=== PATIENT | female | born 1930 | race Caucasian/White ===

== ENCOUNTER 2016-10-27 21:56 | Inpatient (IN) | payer MEDICARE ==
[~2016-10-27] VITALS: Ht 152.4 cm; Wt 71.2 kg
[~2016-10-27 21:56] MED LIST: ASPI-482 PO; ATEN25TA PO; CLOP75TA27 PO; CYAN10005 PO; FISH12002 PO; GLIP5TAB22 PO; HYDR25TA9 PO; METF500T9 PO; NITR0.4T SL; OMEP20TA PO; PRAV80TA PO; VENL75CA PO
[2016-10-27 22:19] LABS: BASO % 0 % (0-3); EOS % 2 % (0-3); HEMATOCRIT 34.6 % (36.0-47.0); HEMOGLOBIN 11.1 g/dL (12.0-15.5); LYMPH # 5.4 x10^3/uL (1.0-4.8); LYMPH % 38 % (24-48); MEAN CORPUSCULAR HEMOGLOBIN 30 pg (25-35); MEAN CORPUSCULAR HGB CONC 32 g/dL (31-37); MEAN CORPUSCULAR VOLUME 92 fL (79-100); MONO % 9 % (0-9); NEUT % 51 % (31-73); PLATELET COUNT 433 x10^3/uL (140-400); RED BLOOD COUNT 3.74 x10^6/uL (3.50-5.40); RED CELL DISTRIBUTION WIDTH 13.8 % (11.5-14.5); WHITE BLOOD COUNT 14.1 x10^3/uL (4.0-11.0)
[2016-10-27 22:29] LABS: INR 1.2 (0.8-1.1); PROTHROMBIN TIME PATIENT 14.8 SEC (11.7-14.0)
[2016-10-27 22:32] LABS: CALCIUM 9.9 mg/dL (8.5-10.1); CREATININE 2.2 mg/dL (0.6-1.0); GFR 21.1; POTASSIUM 3.4 mmol/L (3.5-5.1)
[2016-10-27 22:38] LABS: ALBUMIN 3.2 g/dL (3.4-5.0); ALBUMIN/GLOBULIN RATIO 0.6 (1.0-1.7); TOTAL BILIRUBIN 0.2 mg/dL (0.2-1.0); TOTAL PROTEIN 8.2 g/dL (6.4-8.2)
[2016-10-27] MEDS ORDERED: actos PO (22:46)
--- NOTE | 2016-10-27 22:54 | PHYS DOC ---
Past Medical History Past Medical History: Depression, Diabetes-Type II, High Cholesterol, Hypertension, TIA Additional Past Medical Histor: kidney problems Past Surgical History: Cholecystectomy, Hysterectomy, Splenectomy Additional Past Surgical Histo: cardiac stent Alcohol Use: None Drug Use: None Adult General Chief Complaint Chief Complaint: NEURO SYMPTOMS/DEFICITS [facility] Patient is a 86 year old female who presents with family for evaluation of symptoms starting prior to 6 PM tonight. Her symptoms included right-sided numbness and difficulty swallowing, that resolved and then started having left- sided numbness and weakness. States that her left leg feels worse than her left arm. She denies vision changes, dizziness, chest pain, dyspnea, back pain, nausea or vomiting, fever or chills, neck pain or manipulation, dysuria, diarrhea. She takes Plavix and an 81 mg aspirin today, as well as her other medications. Review of Systems Review of Systems Constitutional: Denies fever or chills [] Eyes: Denies change in visual acuity, redness, or eye pain [] HENT: Denies nasal congestion or sore throat [] Respiratory: Denies cough or shortness of breath [] Cardiovascular: No additional information not addressed in HPI [] GI: Denies abdominal pain, nausea, vomiting, bloody stools or diarrhea [] : Denies dysuria or hematuria [] Musculoskeletal: Denies back pain or joint pain [] Integument: Denies rash or skin lesions [] Neurologic: Denies headache [] Endocrine: Denies polyuria or polydipsia [] Allergies Allergies Allergies Coded Allergies Type Severity Reaction Last Updated Verified Sulfa (Sulfonamide Antibiotics) Allergy Intermediate 12/17/14 No cephalexin Allergy Intermediate 12/17/14 No fluconazole Allergy Intermediate 12/17/14 No iodine Allergy Intermediate 12/17/14 Yes nystatin Allergy Intermediate 12/17/14 No penicillin Allergy Intermediate 12/17/14 No Physical Exam Physical Exam Constitutional: Well developed, well nourished, no acute distress, non-toxic appearance. [] HENT: Normocephalic, atraumatic, bilateral external ears normal, oropharynx moist, no oral exudates, nose normal. [] Eyes: PERRLA, EOMI, conjunctiva normal, no discharge. [] Neck: Normal range of motion, supple. [] Cardiovascular:Heart rate regular rhythm [] Lungs & Thorax: Bilateral breath sounds clear to auscultation [] Abdomen: Bowel sounds normal, soft, no tenderness. [] Skin: Warm, dry, no erythema, no rash. [] Back: Normal range of motion. [] Extremities: No tenderness, ROM intact, no edema. [] Neurologic: Alert and oriented X 3, has extremity drift and left upper and left lower extremities, has abnormal sensation to light touch along left leg compared to right leg, cranial nerves II through XII intact. [] Psychologic: Affect normal, judgement normal, mood normal. [] Current Patient Data Vital Signs Vital Signs Date Time Temp Pulse Resp B/P (MAP) Pulse Ox O2 Delivery O2 Flow Rate FiO2 10/27/16 22:11 97.7 67 17 144/67 (92) 97 Room Air 97.7 Lab Values Laboratory Tests Test 10/27/16 22:09 10/27/16 22:10 Glucose (Fingerstick) 94 mg/dL (70-99) White Blood Count 14.1 x10^3/uL (4.0-11.0) H Red Blood Count 3.74 x10^6/uL (3.50-5.40) Hemoglobin 11.1 g/dL (12.0-15.5) L Hematocrit 34.6 % (36.0-47.0) L Mean Corpuscular Volume 92 fL (79-100) Mean Corpuscular Hemoglobin 30 pg (25-35) Mean Corpuscular Hemoglobin Concent 32 g/dL (31-37) Red Cell Distribution Width 13.8 % (11.5-14.5) Platelet Count 433 x10^3/uL (140-400) H Neutrophils (%) (Auto) 51 % (31-73) Lymphocytes (%) (Auto) 38 % (24-48) Monocytes (%) (Auto) 9 % (0-9) Eosinophils (%) (Auto) 2 % (0-3) Basophils (%) (Auto) 0 % (0-3) Neutrophils # (Auto) 7.2 x10^3uL (1.8-7.7) Lymphocytes # (Auto) 5.4 x10^3/uL (1.0-4.8) H Monocytes # (Auto) 1.3 x10^3/uL (0.0-1.1) H Eosinophils # (Auto) 0.2 x10^3/uL (0.0-0.7) Basophils # (Auto) 0.0 x10^3/uL (0.0-0.2) Prothrombin Time 14.8 SEC (11.7-14.0) H Prothrombin Time INR 1.2 (0.8-1.1) H PTT 32 SEC (24-38) Sodium Level 139 mmol/L (136-145) Potassium Level 3.4 mmol/L (3.5-5.1) L Chloride Level 100 mmol/L (98-107) Carbon Dioxide Level 28 mmol/L (21-32) Anion Gap 11 (6-14) Blood Urea Nitrogen 70 mg/dL (7-20) H Creatinine 2.2 mg/dL (0.6-1.0) H Estimated GFR (Cockcroft-Gault) 21.1 BUN/Creatinine Ratio 32 (6-20) H Glucose Level 100 mg/dL (70-99) H Calcium Level 9.9 mg/dL (8.5-10.1) Total Bilirubin 0.2 mg/dL (0.2-1.0) Aspartate Amino Transferase (AST) 15 U/L (15-37) Alanine Aminotransferase (ALT) 17 U/L (14-59) Alkaline Phosphatase 62 U/L (46-116) Troponin I Quantitative < 0.017 ng/mL (0.000-0.055) Total Protein 8.2 g/dL (6.4-8.2) Albumin 3.2 g/dL (3.4-5.0) L Albumin/Globulin Ratio 0.6 (1.0-1.7) L Laboratory Tests 10/27/16 22:10 Laboratory Tests 10/27/16 22:10 EKG EKG EKG as interpreted by me as sinus rhythm with interventricular block, rate 68, no ST-T changes, AK 178, QTc 472, no ectopy Radiology/Procedures Radiology/Procedures Head CT without contrast IMPRESSION: 1. No acute intracranial hemorrhage. 2. Scattered regions of low attenuation within the white matter. Non-specific in nature but frequently secondary to small vessel ischemic disease. If there is clinical concern for acute etiology MRI could better evaluate to ensure that none of these foci are acute. 3. Prominence of ventricles and sulci which is frequently secondary to age related volume loss. Electronically signed by: Bobby Thompson MD (10/27/2016 11:01 PM) Course & Med Decision Making Course & Med Decision Making Pertinent Labs and Imaging studies reviewed. (See chart for details) Workup is unremarkable. NIH 4 (left sensory change, LUE drift, LLE drift). Symptoms are concerning for ischemic stroke. Due to the onset of her symptoms, she is not at candidate for thrombolysis. Discussed case with Dr. Kauffman, who will admit. Neurology consult placed. Dragon Disclaimer Dragon Disclaimer This electronic medical record was generated, in whole or in part, using a voice recognition dictation system. Departure Departure Impression: Primary Impression: Left-sided weakness Additional Impression: Left sided numbness Disposition: ADMITTED INPATIENT Condition: STABLE Referrals: RUTH KAUFFMAN MD (PCP) Problem Qualifiers Cristiano HERNANDEZ MD October 27, 2016 22:54
--- NOTE | 2016-10-27 23:04 | RAD ---
INDICATION: rt facial numbness and left leg weakness, onset 1800 tonight, no priors COMPARISON: None. TECHNIQUE: Axial CT images obtained through the head without intravenous contrast. One or more of the following individualized dose reduction techniques were utilized for this examination: 1. Automated exposure control; 2. Adjustment of the mA and/or kV according to patient size; 3. Use of iterative reconstruction technique. FINDINGS: No intracranial hemorrhage. No midline shift. Basal cisterns patents. Ventricles and sulci are globally prominent. No acute osseous abnormality. Orbits and paranasal sinuses unremarkable. Scattered foci of low attenuation within the white matter. IMPRESSION: 1. No acute intracranial hemorrhage. 2. Scattered regions of low attenuation within the white matter. Non-specific in nature but frequently secondary to small vessel ischemic disease. If there is clinical concern for acute etiology MRI could better evaluate to ensure that none of these foci are acute. 3. Prominence of ventricles and sulci which is frequently secondary to age related volume loss. Electronically signed by: Bobby Thompson MD (10/27/2016 11:01 PM)
[2016-10-27] MEDS ORDERED: ASPIRIN 325 MG TABLET PO ONE (23:15)
[2016-10-27] MEDS ORDERED: ONDANSETRON PF 4 MG/2 ML VIAL. IV PRN (23:30)
[2016-10-27] MEDS ORDERED: ACETAMINOPHEN 325 MG TABLET. PO PRN (23:30)
[2016-10-28] MEDS: IV NORMAL SALINE 1000ML BAG 1,000 ML IV SCH ×4 (00:29→20:15)
[2016-10-28] MEDS ORDERED: NITROGLYCERIN SUBLINGUAL 0.4 MG BOTTLE OF 25. SL PRN ×2 (01:45→11:15)
[2016-10-28 03:00] VITALS: BP 112/32
--- NOTE | 2016-10-28 07:06 | EKG ---
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
[2016-10-28 07:30] VITALS: BP 115/42
[2016-10-28] MEDS: PANTOPRAZOLE 40 MG TABLET.DR. PO SCH (08:25)
[2016-10-28] MEDS: ASPIRIN ENTERIC COATED 81 MG TABLET.DR. PO SCH (08:25)
[2016-10-28] MEDS: CLOPIDOGREL BISULFATE 75 MG TABLET PO SCH (08:26)
[2016-10-28] MEDS: CYANOCOBALAMIN (VITAMIN B-12) 1,000 MCG TABLET. PO SCH (08:26)
[2016-10-28] MEDS: VENLAFAXINE XR 37.5 MG CAP.ER.24H. PO SCH (08:26)
[2016-10-28] MEDS: OMEGA-3 FATTY ACIDS/FISH OIL 1,000 MG CAPSULE. PO SCH (08:28)
[2016-10-28] MEDS ORDERED: ATENOLOL 25 MG TABLET. PO SCH (09:00)
[2016-10-28] MEDS ORDERED: hydroCHLOROthiazide 25 MG TABLET PO SCH (09:00)
--- NOTE | 2016-10-28 11:07 | CARD ---
APPROVED REPORT EXAM: Two-dimensional and M-mode echocardiogram with Doppler, color Doppler with contrast. Other Information Quality : Average Rhythm : NSR INDICATION CVA/TIA Echo Enhancing Agent Indication: Rule Out Septal Defect Agent/Amount Used: Agitated Saline 8mL 2D DIMENSIONS RVDd2.4 (2.9-3.5cm)Left Atrium(2D)3.7 (1.6-4.0cm) IVSd0.9 (0.7-1.1cm)Aortic Root(2D)2.3 (2.0-3.7cm) LVDd4.3 (3.9-5.9cm)LVOT Diameter2.0 (1.8-2.4cm) PWd0.9 (0.7-1.1cm)LVDs3.2 (2.5-4.0cm) FS (%) 26.7 %SV44.6 ml LVEF(%)52.4 (>50%) Aortic Valve AoV Peak Jose.167.9cm/sAoV VTI38.4cm AO Peak GR.11.3mmHgLVOT Peak Jose.100.4cm/s LVOT VTI 25.91cmAO Mean GR.6mmHg SHANE (VTI)2.12cm2 Mitral Valve MV E Nlzawjnh43.9cm/sMV DECEL EDAB938xv MV A Ftberycf213.7cm/sMV AWA89ra E/A Ratio0.8MV A Pzbaltyp110yx MVA (PHT)3.05cm2 TDI E/Lateral E'14.1E/Medial E'15.5 Pulmonary Valve PV Peak Hthtbyyw59.1cm/sPV Peak Grad.4mmHg RVOT VTI13.4cm Tricuspid Valve TR P. Jijusamd058cw/sRAP ILZTTIBA5cqCn TR Peak Gr.79bxWnZYVK93fjJt LEFT VENTRICLE The left ventricle is normal size. There is normal left ventricular wall thickness. Left ventricle sy stolic function is normal. The Ejection Fraction is 50-55%. There is normal LV segmental wall motion. The left ventricular diastolic function and filling is normal for age. There is no ventricular septa l defect visualized. RIGHT VENTRICLE The right ventricle is normal size. The right ventricular systolic function is normal. ATRIA The left atrium size is normal. The right atrium size is normal. Injection of bubbles documented no i nteratrial shunt. AORTIC VALVE The aortic valve is mildly calcified. The aortic valve is trileaflet. Doppler and Color Flow revealed no significant aortic regurgitation. There is no significant aortic valvular stenosis. MITRAL VALVE Mitral annular calcification is mild. The mitral valve leaflets are calcified. There is no mitral dwight ve stenosis. Doppler and Color Flow revealed trace mitral regurgitation. TRICUSPID VALVE The tricuspid valve is normal in structure and function. Doppler and Color Flow revealed trace to mil d tricuspid regurgitation. The PA pressure was estimated at 39 mmHg. There is no tricuspid valve sten osis. PULMONIC VALVE The pulmonic valve is not well visualized. Doppler and Color Flow revealed no pulmonic valvular regur gitation. There is no pulmonic valvular stenosis. GREAT VESSELS The aortic root is normal in size. Normal pulmonary venous flow (Doppler). The IVC is normal in size and collapses >50% with inspiration. PERICARDIAL EFFUSION There is no evidence of significant pericardial effusion. Critical Notification Critical Value: No <Conclusion> Left ventricle systolic function is normal. The Ejection Fraction is 50-55%. There is normal LV segmental wall motion. Injection of bubbles documented no interatrial shunt.
[2016-10-28] MEDS ORDERED: MAGNESIUM HYDROXIDE 2,400 MG/30 ML ORAL.SUSP. PO PRN (11:15)
[2016-10-28] MEDS ORDERED: ACETAMINOPHEN 325 MG TABLET. PO PRN (11:15)
--- NOTE | 2016-10-28 11:24 | PDOC ---
Provider Note Provider Note history and physical dictated # [id number] RUTH CRUZ MD Oct 28, 2016 11:24
[2016-10-28] MEDS ORDERED: POTASSIUM CHLORIDE 20 MEQ TABLET.ER. PO ONE (11:30)
[2016-10-28] MEDS ORDERED: CYANOCOBALAMIN (VITAMIN B-12) 1,000 MCG TABLET. PO SCH (12:00)
[2016-10-28] MEDS ORDERED: OMEGA-3 FATTY ACIDS/FISH OIL 1,000 MG CAPSULE. PO SCH (12:00)
--- NOTE | 2016-10-28 12:18 | HP ---
ADMIT DATE: 10/28/2016 LOCATION: She is in room 650. HISTORY OF THE PRESENT ILLNESS: The patient is an 86-year-old white female with history of diabetes mellitus type 2, hypertension, hyperlipidemia, and coronary artery disease, who was admitted to [facility] through the Emergency Room on 10/27/2016 with left-sided weakness and difficulty walking. [place]ness in the right side of her face. That eventually resolved and recurred later in the day. She also had some difficulty swallowing at one point. The patient then developed some left-sided numbness involving her left leg and also had some difficulty walking. She sought the help at the [facility] Emergency Room yesterday, and the patient was hemodynamically stable. She was noted to have a left pronator drift and mild weakness in the left leg. A CAT scan of the head in the Emergency Room was negative, and she was subsequently admitted to the hospital and treated with 325 mg of aspirin and started on IV fluids. She was noted to be in acute kidney injury with a BUN 70 and a creatinine of 2.2. She denies any vomiting or diarrhea. There was a consult for speech therapist, and she said she ate breakfast well without any problems swallowing solid foods or liquids. She just completed her echocardiogram today, and I saw her before her carotid ultrasound, and she will be having an MRI of the brain subsequent to that. ALLERGIES AND INTOLERANCES: INCLUDE KEFLEX, FLUCONAZOLE, ORAL AND IV IODINE, ATROVENT, LISINOPRIL CAUSED HYPERKALEMIA, PENICILLIN, CRESTOR CAUSED MYALGIAS, SULFA, AND SILDENAFIL. MEDICATIONS: Include amlodipine 5 mg every day, atenolol 12.5 mg b.i.d., aspirin 81 mg every day, Effexor XR 75 mg every day, fish oil 1 g every day, glipizide 5 mg b.i.d., hydrochlorothiazide 25 mg every day, MiraLax 17 grams daily, multiple vitamin once a day, nitroglycerin 0.4 mg sublingual p.r.n., Actos 30 mg every day, Plavix 75 mg every day, pravastatin 40 mg every day, Senokot-S two tablets at bedtime, vitamin B12 1000 mcg daily, and vitamin D 1000 units every day. PAST MEDICAL HISTORY: Significant for diabetes mellitus type 2, hypertension, hyperlipidemia, coronary artery disease, and overactive bladder. PAST SURGICAL HISTORY: She had a PTCA and stent to right coronary artery in 2012. She had a tonsillectomy, splenectomy, and benign colon polypectomy in 2008. She had a cholecystectomy, cataract extraction, appendectomy, had a cardiac catheterization in 2004, and had a partial thyroidectomy. SOCIAL HISTORY: She is retired, does not drink alcohol, nor does she smoke cigarettes. FAMILY HISTORY: Noncontributory. REVIEW OF SYSTEMS: GENERAL: She denies any fever, chills, or sweats in the last 3 days. CARDIOVASCULAR: No chest pain. PULMONARY: No cough or shortness breath. GASTROINTESTINAL: No constipation. She has some difficulty swallowing apparently yesterday, but not this morning. SKIN: No rashes. NEUROLOGIC: She has a left-sided weakness, had some numbness in the right side of her cheek yesterday, and difficulty swallowing yesterday. ENDOCRINE: She has diabetes mellitus. The rest of systems reviewed are negative except as stated in history of present illness. PHYSICAL EXAMINATION: VITAL SIGNS: Temperature is 97.6 degrees, apical pulse is regular at 52, respiratory rate 18, blood pressure 115/42, and oxygen saturation 96% on room air. HEENT: Eyes: Gaze is conjugate. Extraocular muscles are intact. Mouth: Tongue is midline. There is no facial weakness. NECK: No cervical lymphadenopathy. HEART: Reveals an S1, S2. There is no S3 or murmur. LUNGS: Clear. ABDOMEN: Soft, nontender in the sitting position. EXTREMITIES: Lower extremities without edema. SKIN: No rashes. NEUROLOGIC: Again, there is no facial weakness. She has got a left pronator drift noted on the left side, some mild weakness in the left hand mat gauger relative to the right. She has got good biceps strength bilaterally. Right lower extremity is able to dorsiflex and plantar flex right foot, bend and extend her right knee, and raise her right thigh off the wheelchair seat. Left lower extremity is weaker. She has got about 2 to 3 out of 5 dorsiflexion of the left foot, about 4 to 5 plantarflexion of the left foot. She can flex and extend her left knee but is weaker. She has more difficult time raising her left thigh off the wheelchair seat relative to the right leg. LABORATORY DATA: Her white count was 14.1, hemoglobin 11.1 with a platelet count 433,000, 51 polys, and 38 lymphocytes. INR of 1.2, serum sodium is 139, potassium 3.4, chloride 100, total CO2 was 28, BUN 70, creatinine 2.2, and blood sugar was 100. She had a blood sugar of 61 at 734 this morning and repeated was 136 at 9:20 a.m. Liver function tests were normal. Troponin level is less than 0.017. Albumin was 3.2. She had a CAT scan of the head which showed no acute abnormality. She had an EKG which showed normal sinus rhythm, left axis deviation, left anterior hemiblock, and right bundle adelina block. ASSESSMENT: 1. Acute cerebrovascular accident, left-sided hemiparesis. 2. Acute kidney injury, possibly from dehydration and volume depletion. 3. Diabetes mellitus type 2. 4. Hypertension. 5. Hyperlipidemia. 6. Coronary artery disease. PLAN: At this time is to start her on IV normal saline at 75 mL an hour. She did receive IV fluids in the Emergency Room. We will discontinue the hydrochlorothiazide. Check a renal ultrasound and urinalysis and recheck her CBC and BMP tomorrow. We will also get an MRI of the brain, echocardiogram, and carotid ultrasound. We will consult Dr. Morataya. [facility] [place] prophylaxis. Decrease the glipizide to 5 mg every day, putting her on diabetic diet, checking her blood sugars before meals t.i.d. and bedtime. Continue the Actos for diabetes mellitus. Continue the aspirin and Plavix for now for cerebrovascular accident. Pravastatin is not on formulary, so we will try low-dose atorvastatin. Hopefully, she will tolerate that without myalgias. Check a hemoglobin A1c and lipid profile tomorrow, and we will decrease the atenolol and hold if the heart rate is less than 60. In fact, we will discontinue the atenolol and put her on low-dose metoprolol succinate once a day at 12.5 mg if the heart rate is 60 or higher. She will receive physical therapy, occupational therapy, and speech therapy also. Speech Therapy will evaluate her as well. RUTH CRUZ MD DR: RACHELLE/tobias JOB#: [id number] / [id number]
--- NOTE | 2016-10-28 13:02 | RAD ---
EXAM: Brain MRI without contrast. HISTORY: Right facial numbness and left leg weakness. TECHNIQUE: Multiplanar, multisequence magnetic resonance imaging of the brain was performed without contrast. COMPARISON: CT dated 10/27/2016. FINDINGS: There is no restricted diffusion to suggest acute or subacute infarction. There is a faint focus of susceptibility effect within the right cerebellum, possibly due to chronic microhemorrhage. There are scattered focal areas of signal change throughout the cerebral white matter, a nonspecific finding likely due to chronic small vessel disease. There is mild age-appropriate cerebral volume loss. There are findings consistent with lens surgery. The paranasal sinuses and mastoid air cells are unremarkable. There is a tiny focus of encephalomalacia within the left cerebellum, likely due to chronic infarction. There may also be chronic lacunar infarcts within the bilateral thalami. There is a hypoplastic distal left vertebral artery. There are normal flow voids within the cerebral vessels. There is slight hyperostosis frontalis interna. IMPRESSION: 1. No acute intracranial finding. 2. Scattered focal areas of signal change within the cerebral white matter, a nonspecific finding likely due to chronic small vessel disease. 3. Suspected small chronic infarct within the left cerebellum and possible chronic lacunar infarcts within the lateral thalami. 4. Age-appropriate cerebral volume loss. Electronically signed by: Qian Stroud MD (10/28/2016 12:59 PM)
[2016-10-28] MEDS: glipiZIDE 5 MG TABLET PO SCH (14:04)
[2016-10-28] MEDS: CHOLECALCIFEROL (VITAMIN D3) 1,000 UNIT TABLET PO SCH (14:08)
[2016-10-28] MEDS: PIOGLITAZONE 15 MG TABLET. PO SCH (14:08)
[2016-10-28] MEDS: MULTIVITAMIN with MINERAL TABLET. PO SCH (14:08)
[2016-10-28] MEDS: METOPROLOL SUCC 24HR ER 25 MG TAB.ER.24H. PO SCH (14:08)
[2016-10-28 14:33] VITALS: BP 141/50
--- NOTE | 2016-10-28 14:39 | RAD ---
Indication acute renal insufficiency. Grayscale imaging targeted to the kidneys was performed. No recent similar imaging is available. The right kidney measures 9.4 x 4.7 x 4.5 cm. No hydronephrosis or mass is seen. The urinary bladder is largely collapsed and poorly evaluated with ultrasound. The left kidney measures 10 x 4.2 x 4 cm and appears normal showing no evidence of hydronephrosis or mass. IMPRESSION: Apart from slightly small kidneys the morphologic appearance of the kidneys is normal.
--- NOTE | 2016-10-28 14:48 | RAD ---
Indication CVA. Grayscale color Doppler and spectral imaging targeted to the carotid bifurcations was performed. On the right there is no significant plaquing. The color Doppler images do not suggest significant turbulence. The common carotid waveform and velocities are normal. The external carotid has a normal appearance. The internal carotid waveform and velocities are normal. The vertebral is patent and demonstrates normal directional flow. On the left there is some slight plaquing at the bifurcation. The common carotid waveform and velocities are normal. The color Doppler images do not suggest significant turbulence. The external carotid has a normal appearance. The internal carotid waveform and velocities are within normal limits. The vertebral is patent and demonstrates normal directional flow. IMPRESSION: No evidence of hemodynamically significant stenosis at either carotid bifurcation. Stenosis 0-50%. Note: Stenosis calculations for CT, MR and conventional angiography are based upon determination of the distal ICA diameter in accordance with the NASCET methodology. Stenosis calculations for doppler studies are derived from validated velocity criteria which are known to correlate with NASCET methodology of determining stenosis.
--- NOTE | 2016-10-28 14:58 | PDOC2 ---
NEUROLOGY CONSULT Date of Admission Date of Admission DATE: 10/28/16 TIME: 14:52 Reason for Consult Reason for Consult: Stroke symptoms Referring Physician Referring Physician: Dr. Kauffman Source Source: Caregiver, Chart review, Patient History of Present Illness History of Present Illness The patient is an 86-year-old right-handed female who was with her daughter at the [facility] yesterday afternoon when about 6 PM she noticed onset of right facial numbness. Symptoms improve, but then she started noticing left-sided weakness and numbness 2 hours later. She presented at 10 PM but the emergency room physician determine that she was outside the TPA window. I was not called about this issue. Denies any history of stroke, seizure, or head injury. She has been told that she has had mini strokes in the past, though. Past Medical History Cardiovascular: CAD, HTN GI: GERD Psych: Depression Endocrine: Diabetes Past Surgical History Past Surgical History: Cholecystectomy, Tonsillectomy, Other (coronary stent, lumpectomy, partial thyroidectomy) Family History Family History: CAD Social History Social History , nonsmoker, nondrinker Current Medications Current Medications Current Medications Aspirin (Celi Aspirin) 325 mg 1X ONCE PO Last administered on 10/28/16 00:29 ; Start 10/27/16 at 23:15; Stop 10/27/16 at 23:16; Status DC Ondansetron HCl (Zofran) 4 mg PRN Q8HRS PRN IV NAUSEA/VOMITING; Start 10/27/16 at 23:30; Stop 10/28/16 at 23:29 Sodium Chloride 1,000 ml @ 75 mls/hr [id number] IV Last administered on 10/28/16 14:12; Start 10/27/16 at 23:30; Stop 10/28/16 at 23:29 Acetaminophen (Tylenol) 650 mg PRN Q4HRS PRN PO FEVER; Start 10/27/16 at 23:30 ; Stop 10/28/16 at 23:29 Aspirin (Ecotrin) 81 mg DAILY PO Last administered on 10/28/16 08:25; Start 10/28/16 at 09:00 Atenolol (Tenormin) 12.5 mg BID PO ; Start 10/28/16 at 09:00; Stop 10/28/16 at 11: 26; Status DC Clopidogrel Bisulfate (Plavix) 75 mg DAILY PO Last administered on 10/28/16 08: 26; Start 10/28/16 at 09:00 Cyanocobalamin (Vitamin B-12) 500 mcg DAILY PO Last administered on 10/28/16 08 :26; Start 10/28/16 at 09:00 Hydrochlorothiazide (Hydrodiuril) 25 mg DAILY PO Last administered on 10/28/16 08:26; Start 10/28/16 at 09:00; Stop 10/28/16 at 10:27; Status DC Nitroglycerin (Nitrostat) 0.4 mg PRN Q5MIN PRN SL CHEST PAIN; Start 10/28/16 at 01:45 Fish Oil (Fish Oil) 1,000 mg DAILY PO Last administered on 10/28/16 08:28; Start 10/28/16 at 09:00 Pantoprazole Sodium (Protonix) 40 mg DAILYAC PO Last administered on 10/28/16 08:25; Start 10/28/16 at 07:30 Atorvastatin Calcium (Lipitor) 20 mg QHS PO ; Start 10/28/16 at 21:00; Stop at 21:00; Status DC Venlafaxine HCl (Effexor Xr) 75 mg DAILY PO Last administered on 10/28/16 08:26 ; Start 10/28/16 at 09:00 Glipizide (Glucotrol) 5 mg DAILY PO Last administered on 10/28/16 14:04; Start 10/28/16 at 12:00 Pioglitazone HCl (Actos) 30 mg DAILY PO Last administered on 10/28/16 14:08; Start 10/28/16 at 12:00 Atorvastatin Calcium (Lipitor) 10 mg QHS PO ; Start 10/28/16 at 21:00 Vitamin D (Vitamin D3) 1,000 unit DAILY PO Last administered on 10/28/16 14:08 ; Start 10/28/16 at 12:00 Cyanocobalamin (Vitamin B-12) 1,000 mcg DAILY PO Last administered on 10/28/16 14:03; Start 10/28/16 at 12:00 Senna/Docusate Sodium (Senna Plus) 2 tab QHS PO ; Start 10/28/16 at 21:00 Nitroglycerin (Nitrostat) 0.4 mg PRN Q5MIN PRN SL CHEST PAIN; Start 10/28/16 at 11:15 Acetaminophen (Tylenol) 650 mg Q4HRS PRN PO MILD PAIN / TEMP; Start 10/28/16 at 11:15 Multivitamins (Thera M Plus) 1 tab DAILY PO Last administered on 10/28/16 14:08 ; Start 10/28/16 at 12:00 Fish Oil (Fish Oil) 1,000 mg DAILY PO ; Start 10/28/16 at 12:00 Sodium Chloride 1,000 ml @ 75 mls/hr [id number] IV ; Start 10/28/16 at 11:15 Magnesium Hydroxide (Milk Of Magnesia) 2,400 mg PRN DAILY PRN PO CONSTIPATION; Start 10/28/16 at 11:15 Metoprolol Succinate (Toprol Xl) 12.5 mg DAILY PO Last administered on 14:08; Start 10/28/16 at 12:00 Potassium Chloride (Klor-Con) 20 meq 1X ONCE PO Last administered on 10/28/16 14:08; Start 10/28/16 at 11:30; Stop 10/28/16 at 11:43; Status DC Active Scripts Active Reported [actos] 2.5 Tab 2.5 Mg PO DAILY [place] 3-6-9 1,200 mg Softgel (Fish Oil/Borage/Flax/Om3,6,9#1) 1,200 Mg Capsule 1 ,200 Mg PO DAILY Omeprazole 20 Mg Tablet. 20 Mg PO DAILY Pravachol (Pravastatin Sodium) 80 Mg Tablet 80 Mg PO QHS Effexor Xr (Venlafaxine Hcl) 75 Mg Cap.er.24h 75 Mg PO DAILY Nitrostat (Nitroglycerin) 0.4 Mg Tab.subl 0.4 Mg SL PRN Q5MIN PRN Glipizide Er (Glipizide) 5 Mg Tab.er.24 5 Mg PO BID Plavix (Clopidogrel Bisulfate) 75 Mg Tablet 75 Mg PO DAILY Aspir 81 (Aspirin) 81 Mg Tablet.dr 81 Mg PO DAILY Atenolol 25 Mg Tablet 12.5 Mg PO BID Vitamin B-12 (Cyanocobalamin (Vitamin B-12)) 1,000 Mcg Tablet 500 Mcg PO DAILY Hydrochlorothiazide Tablet (Hydrochlorothiazide) 25 Mg Tablet 25 Mg PO DAILY Allergies Allergies: Coded Allergies: Sulfa (Sulfonamide Antibiotics) (Verified Allergy, Intermediate, 10/28/16) cephalexin (Verified Allergy, Intermediate, 10/28/16) fluconazole (Verified Allergy, Intermediate, 10/28/16) iodine (Verified Allergy, Intermediate, 12/17/14) nystatin (Verified Allergy, Intermediate, 10/28/16) penicillin (Verified Allergy, Intermediate, 10/28/16) ROS Review of System Patient denies fevers, chills, weight loss, dyspnea, angina, abdominal pain, change in bowels, or dysuria. 14 point review of systems is negative. Physical Exam Physical Examination PHYSICAL EXAMINATION: Vital signs: see above. General appearance is normal and in no acute distress. HEENT: Normocephalic and nontraumatic. Eyes, nose, ears, and throat are unremarkable. Neck is supple. No lymphadenopathy. No bruits are heard over the carotid artery. No crepitus. NEUROLOGICAL EXAMINATION: Mental Status Examination: Alert. Oriented to time, place, and person. Answers questions and follows commends. Pupils are equal round and reactive to light and accommodation. Extraocular movements are intact. Visual field exam shows no defect on the direct confrontation. No motor or sensory deficits on the facial exam. Uvula in the midline and the soft palate elevated symmetrically. No deviation of the tongue to any direction. Gross hearing is normal. Shoulder shrug normal. Muscle tone is normal. Muscle strength is 4/5 on the left, 5/5 on the right. Deep tendon reflexes are 2+ all around. Plantar reflex is with flexion response bilaterally. [id number] test performance is accurate. Alternative movements are accurate. Gait is unsteady. Sensory exam shows patchy loss on the left. No cerebellar signs are elicited. Vitals VITALS Vital Signs Date Time Temp Pulse Resp B/P (MAP) Pulse Ox O2 Delivery O2 Flow Rate FiO2 10/28/16 14:08 62 115/42 10/28/16 07:50 Room Air 10/28/16 07:30 97.6 18 96 97.6 Labs Labs Laboratory Tests Test 10/27/16 22:09 10/27/16 22:10 10/28/16 07:34 10/28/16 09:20 Glucose (Fingerstick) 94 mg/dL (70-99) 61 mg/dL (70-99) 136 mg/dL (70-99) White Blood Count 14.1 x10^3/uL (4.0-11.0) Red Blood Count 3.74 x10^6/uL (3.50-5.40) Hemoglobin 11.1 g/dL (12.0-15.5) Hematocrit 34.6 % (36.0-47.0) Mean Corpuscular Volume 92 fL (79-100) Mean Corpuscular Hemoglobin 30 pg (25-35) Mean Corpuscular Hemoglobin Concent 32 g/dL (31-37) Red Cell Distribution Width 13.8 % (11.5-14.5) Platelet Count 433 x10^3/uL (140-400) Neutrophils (%) (Auto) 51 % (31-73) Lymphocytes (%) (Auto) 38 % (24-48) Monocytes (%) (Auto) 9 % (0-9) Eosinophils (%) (Auto) 2 % (0-3) Basophils (%) (Auto) 0 % (0-3) Neutrophils # (Auto) 7.2 x10^3uL (1.8-7.7) Lymphocytes # (Auto) 5.4 x10^3/uL (1.0-4.8) Monocytes # (Auto) 1.3 x10^3/uL (0.0-1.1) Eosinophils # (Auto) 0.2 x10^3/uL (0.0-0.7) Basophils # (Auto) 0.0 x10^3/uL (0.0-0.2) Prothrombin Time 14.8 SEC (11.7-14.0) Prothromb Time International Ratio 1.2 (0.8-1.1) Activated Partial Thromboplast Time 32 SEC (24-38) Sodium Level 139 mmol/L (136-145) Potassium Level 3.4 mmol/L (3.5-5.1) Chloride Level 100 mmol/L (98-107) Carbon Dioxide Level 28 mmol/L (21-32) Anion Gap 11 (6-14) Blood Urea Nitrogen 70 mg/dL (7-20) Creatinine 2.2 mg/dL (0.6-1.0) Estimated GFR (Cockcroft-Gault) 21.1 BUN/Creatinine Ratio 32 (6-20) Glucose Level 100 mg/dL (70-99) Calcium Level 9.9 mg/dL (8.5-10.1) Total Bilirubin 0.2 mg/dL (0.2-1.0) Aspartate Amino Transf (AST/SGOT) 15 U/L (15-37) Alanine Aminotransferase (ALT/SGPT) 17 U/L (14-59) Alkaline Phosphatase 62 U/L (46-116) Troponin I Quantitative < 0.017 ng/mL (0.000-0.055) Total Protein 8.2 g/dL (6.4-8.2) Albumin 3.2 g/dL (3.4-5.0) Albumin/Globulin Ratio 0.6 (1.0-1.7) Laboratory Tests Test 10/27/16 22:09 10/27/16 22:10 10/28/16 07:34 10/28/16 09:20 Glucose (Fingerstick) 94 mg/dL (70-99) 61 mg/dL (70-99) 136 mg/dL (70-99) White Blood Count 14.1 x10^3/uL (4.0-11.0) Red Blood Count 3.74 x10^6/uL (3.50-5.40) Hemoglobin 11.1 g/dL (12.0-15.5) Hematocrit 34.6 % (36.0-47.0) Mean Corpuscular Volume 92 fL (79-100) Mean Corpuscular Hemoglobin 30 pg (25-35) Mean Corpuscular Hemoglobin Concent 32 g/dL (31-37) Red Cell Distribution Width 13.8 % (11.5-14.5) Platelet Count 433 x10^3/uL (140-400) Neutrophils (%) (Auto) 51 % (31-73) Lymphocytes (%) (Auto) 38 % (24-48) Monocytes (%) (Auto) 9 % (0-9) Eosinophils (%) (Auto) 2 % (0-3) Basophils (%) (Auto) 0 % (0-3) Neutrophils # (Auto) 7.2 x10^3uL (1.8-7.7) Lymphocytes # (Auto) 5.4 x10^3/uL (1.0-4.8) Monocytes # (Auto) 1.3 x10^3/uL (0.0-1.1) Eosinophils # (Auto) 0.2 x10^3/uL (0.0-0.7) Basophils # (Auto) 0.0 x10^3/uL (0.0-0.2) Prothrombin Time 14.8 SEC (11.7-14.0) Prothromb Time International Ratio 1.2 (0.8-1.1) Activated Partial Thromboplast Time 32 SEC (24-38) Sodium Level 139 mmol/L (136-145) Potassium Level 3.4 mmol/L (3.5-5.1) Chloride Level 100 mmol/L (98-107) Carbon Dioxide Level 28 mmol/L (21-32) Anion Gap 11 (6-14) Blood Urea Nitrogen 70 mg/dL (7-20) Creatinine 2.2 mg/dL (0.6-1.0) Estimated GFR (Cockcroft-Gault) 21.1 BUN/Creatinine Ratio 32 (6-20) Glucose Level 100 mg/dL (70-99) Calcium Level 9.9 mg/dL (8.5-10.1) Total Bilirubin 0.2 mg/dL (0.2-1.0) Aspartate Amino Transf (AST/SGOT) 15 U/L (15-37) Alanine Aminotransferase (ALT/SGPT) 17 U/L (14-59) Alkaline Phosphatase 62 U/L (46-116) Troponin I Quantitative < 0.017 ng/mL (0.000-0.055) Total Protein 8.2 g/dL (6.4-8.2) Albumin 3.2 g/dL (3.4-5.0) Albumin/Globulin Ratio 0.6 (1.0-1.7) Images Images Brain MRI: FINDINGS: There is no restricted diffusion to suggest acute or subacute infarction. There is a faint focus of susceptibility effect within the right cerebellum, possibly due to chronic microhemorrhage. There are scattered focal areas of signal change throughout the cerebral white matter, a nonspecific finding likely due to chronic small vessel disease. There is mild age-appropriate cerebral volume loss. There are findings consistent with lens surgery. The paranasal sinuses and mastoid air cells are unremarkable. There is a tiny focus of encephalomalacia within the left cerebellum, likely due to chronic infarction. There may also be chronic lacunar infarcts within the bilateral thalami. There is a hypoplastic distal left vertebral artery. There are normal flow voids within the cerebral vessels. There is slight hyperostosis frontalis interna. IMPRESSION: 1. No acute intracranial finding. 2. Scattered focal areas of signal change within the cerebral white matter, a nonspecific finding likely due to chronic small vessel disease. 3. Suspected small chronic infarct within the left cerebellum and possible chronic lacunar infarcts within the lateral thalami. 4. Age-appropriate cerebral volume loss. Carotids: On the right there is no significant plaquing. The color Doppler images do not suggest significant turbulence. The common carotid waveform and velocities are normal. The external carotid has a normal appearance. The internal carotid waveform and velocities are normal. The vertebral is patent and demonstrates normal directional flow. On the left there is some slight plaquing at the bifurcation. The common carotid waveform and velocities are normal. The color Doppler images do not suggest significant turbulence. The external carotid has a normal appearance. The internal carotid waveform and velocities are within normal limits. The vertebral is patent and demonstrates normal directional flow. IMPRESSION: No evidence of hemodynamically significant stenosis at either carotid bifurcation. Stenosis 0-50%. CT head: FINDINGS: No intracranial hemorrhage. No midline shift. Basal cisterns patents. Ventricles and sulci are globally prominent. No acute osseous abnormality. Orbits and paranasal sinuses unremarkable. Scattered foci of low attenuation within the white matter. IMPRESSION: 1. No acute intracranial hemorrhage. 2. Scattered regions of low attenuation within the white matter. Non-specific in nature but frequently secondary to small vessel ischemic disease. If there is clinical concern for acute etiology MRI could better evaluate to ensure that none of these foci are acute. 3. Prominence of ventricles and sulci which is frequently secondary to age related volume loss. 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 I suppose this could all be metabolic from her kidney disease, but that is unlikely to show such focal features. Recommendations: Await echocardiogram Note that she is already on aspirin, Plavix, and a statin. Continue these. Check lipids, perhaps adjust statin dose depending on the results Rehabilitation modalities I suspect that she will need inpatient rehabilitation or fci I discussed my findings with the patient and her daughter. Thank you for letting me help with the patient's care. RORY TUTTLE MD Oct 28, 2016 14:58
[2016-10-28 19:10] VITALS: BP 135/47
[2016-10-28] MEDS: SENNOSIDES/DOCUSATE 8.6/50MG TABLET. PO SCH (20:14)
[2016-10-28] MEDS: ATORVASTATIN CALCIUM 10 MG TABLET. PO SCH (20:15)
[2016-10-28] MEDS ORDERED: ATORVASTATIN CALCIUM 20 MG TABLET PO SCH (21:00)
[2016-10-28 23:10] VITALS: BP 142/51
[2016-10-29 03:10] VITALS: BP 109/47
[2016-10-29 04:18] LABS: BASO # 0.1 x10^3/uL (0.0-0.2); BASO % 1 % (0-3); EOS % 4 % (0-3); HEMATOCRIT 28.5 % (36.0-47.0); HEMOGLOBIN 9.3 g/dL (12.0-15.5); LYMPH # 3.2 x10^3/uL (1.0-4.8); LYMPH % 34 % (24-48); MEAN CORPUSCULAR HEMOGLOBIN 31 pg (25-35); MEAN CORPUSCULAR HGB CONC 33 g/dL (31-37); MEAN CORPUSCULAR VOLUME 94 fL (79-100); MONO % 9 % (0-9); NEUT % 51 % (31-73); PLATELET COUNT 373 x10^3/uL (140-400); RED BLOOD COUNT 3.03 x10^6/uL (3.50-5.40); RED CELL DISTRIBUTION WIDTH 13.7 % (11.5-14.5); WHITE BLOOD COUNT 9.3 x10^3/uL (4.0-11.0)
[2016-10-29 04:35] LABS: CALCIUM 9.1 mg/dL (8.5-10.1); CREATININE 1.7 mg/dL (0.6-1.0); GFR 28.4; POTASSIUM 3.7 mmol/L (3.5-5.1)
[2016-10-29 04:39] LABS: CHOLESTEROL/HDL RATIO 4.9
[2016-10-29 07:40] VITALS: BP 109/47
[2016-10-29] MEDS: glipiZIDE 5 MG TABLET PO SCH (08:31)
[2016-10-29] MEDS: OMEGA-3 FATTY ACIDS/FISH OIL 1,000 MG CAPSULE. PO SCH (08:31)
[2016-10-29] MEDS: MULTIVITAMIN with MINERAL TABLET. PO SCH (08:31)
[2016-10-29] MEDS: PANTOPRAZOLE 40 MG TABLET.DR. PO SCH (08:31)
[2016-10-29] MEDS: METOPROLOL SUCC 24HR ER 25 MG TAB.ER.24H. PO SCH (08:32)
[2016-10-29] MEDS: CHOLECALCIFEROL (VITAMIN D3) 1,000 UNIT TABLET PO SCH (08:33)
[2016-10-29] MEDS: CLOPIDOGREL BISULFATE 75 MG TABLET PO SCH (08:33)
[2016-10-29] MEDS: PIOGLITAZONE 15 MG TABLET. PO SCH (08:33)
[2016-10-29] MEDS: ASPIRIN ENTERIC COATED 81 MG TABLET.DR. PO SCH (08:33)
[2016-10-29] MEDS: VENLAFAXINE XR 37.5 MG CAP.ER.24H. PO SCH (08:34)
[2016-10-29] MEDS: CYANOCOBALAMIN (VITAMIN B-12) 1,000 MCG TABLET. PO SCH (08:35)
--- NOTE | 2016-10-29 10:11 | PDOC ---
PROGRESS NOTES Subjective Subjective feels better. PT recommends in patient rehab facility. 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 echo and carotid ultrasound negative. renal sonogram without hydronephrosis. renal function improving with iv fluids. she concurs with MARH screen. Objective Objective Vital Signs Date Time Temp Pulse Resp B/P (MAP) Pulse Ox O2 Delivery O2 Flow Rate FiO2 10/29/16 08:32 65 109/47 10/29/16 07:40 98.0 18 96 Room Air 98.0 Intake and Output 10/29/16 07:00 Intake Total 2240 ml Output Total 1300 ml Balance 940 ml Intake Oral 2240 ml Output Urine Total 1300 ml # Voids 2 Physical Exam Abdomen: Soft Heart: Regular rate, Normal S1, Normal S2 Extremities: No edema General: Alert HEENT: Atraumatic Lungs: Clear to auscultation Neuro: Normal speech, Other (moves arms and legs) Psych/Mental Status: Mental status NL Skin: No rashes Assessment Assessment Problems1. Acute cerebrovascular accident, left-sided hemiparesis. small with negative MRI brain 2. Acute kidney injury,due to dehydration and volume depletion. treated with iv fluids and hctz discontinued 3. Diabetes mellitus type 2. 4. Hypertension. bp okay 5. Hyperlipidemia. 6. Coronary artery disease. anemia Medical Problems: (1) Left sided numbness Status: Acute (2) Left-sided weakness Status: Acute Plan Plan of Care continue iv fluids PT and OT MARH screen anticipate dismissal tomorrow to [facility] continue aspirin and plavix iron and vit b12 studies and stool hemoccult and SPEP Comment Review of Relevant I have reviewed the following items kaylee (where applicable) has been applied. Labs Laboratory Tests Test 10/27/16 22:09 10/27/16 22:10 10/28/16 07:34 10/28/16 09:20 Glucose (Fingerstick) 94 mg/dL (70-99) 61 mg/dL (70-99) 136 mg/dL (70-99) White Blood Count 14.1 x10^3/uL (4.0-11.0) Red Blood Count 3.74 x10^6/uL (3.50-5.40) Hemoglobin 11.1 g/dL (12.0-15.5) Hematocrit 34.6 % (36.0-47.0) Mean Corpuscular Volume 92 fL (79-100) Mean Corpuscular Hemoglobin 30 pg (25-35) Mean Corpuscular Hemoglobin Concent 32 g/dL (31-37) Red Cell Distribution Width 13.8 % (11.5-14.5) Platelet Count 433 x10^3/uL (140-400) Neutrophils (%) (Auto) 51 % (31-73) Lymphocytes (%) (Auto) 38 % (24-48) Monocytes (%) (Auto) 9 % (0-9) Eosinophils (%) (Auto) 2 % (0-3) Basophils (%) (Auto) 0 % (0-3) Neutrophils # (Auto) 7.2 x10^3uL (1.8-7.7) Lymphocytes # (Auto) 5.4 x10^3/uL (1.0-4.8) Monocytes # (Auto) 1.3 x10^3/uL (0.0-1.1) Eosinophils # (Auto) 0.2 x10^3/uL (0.0-0.7) Basophils # (Auto) 0.0 x10^3/uL (0.0-0.2) Prothrombin Time 14.8 SEC (11.7-14.0) Prothromb Time International Ratio 1.2 (0.8-1.1) Activated Partial Thromboplast Time 32 SEC (24-38) Sodium Level 139 mmol/L (136-145) Potassium Level 3.4 mmol/L (3.5-5.1) Chloride Level 100 mmol/L (98-107) Carbon Dioxide Level 28 mmol/L (21-32) Anion Gap 11 (6-14) Blood Urea Nitrogen 70 mg/dL (7-20) Creatinine 2.2 mg/dL (0.6-1.0) Estimated GFR (Cockcroft-Gault) 21.1 BUN/Creatinine Ratio 32 (6-20) Glucose Level 100 mg/dL (70-99) Calcium Level 9.9 mg/dL (8.5-10.1) Total Bilirubin 0.2 mg/dL (0.2-1.0) Aspartate Amino Transf (AST/SGOT) 15 U/L (15-37) Alanine Aminotransferase (ALT/SGPT) 17 U/L (14-59) Alkaline Phosphatase 62 U/L (46-116) Troponin I Quantitative < 0.017 ng/mL (0.000-0.055) Total Protein 8.2 g/dL (6.4-8.2) Albumin 3.2 g/dL (3.4-5.0) Albumin/Globulin Ratio 0.6 (1.0-1.7) Test 10/28/16 17:14 10/29/16 03:22 10/29/16 07:50 Glucose (Fingerstick) 135 mg/dL (70-99) 99 mg/dL (70-99) White Blood Count 9.3 x10^3/uL (4.0-11.0) Red Blood Count 3.03 x10^6/uL (3.50-5.40) Hemoglobin 9.3 g/dL (12.0-15.5) Hematocrit 28.5 % (36.0-47.0) Mean Corpuscular Volume 94 fL (79-100) Mean Corpuscular Hemoglobin 31 pg (25-35) Mean Corpuscular Hemoglobin Concent 33 g/dL (31-37) Red Cell Distribution Width 13.7 % (11.5-14.5) Platelet Count 373 x10^3/uL (140-400) Neutrophils (%) (Auto) 51 % (31-73) Lymphocytes (%) (Auto) 34 % (24-48) Monocytes (%) (Auto) 9 % (0-9) Eosinophils (%) (Auto) 4 % (0-3) Basophils (%) (Auto) 1 % (0-3) Neutrophils # (Auto) 4.7 x10^3uL (1.8-7.7) Lymphocytes # (Auto) 3.2 x10^3/uL (1.0-4.8) Monocytes # (Auto) 0.9 x10^3/uL (0.0-1.1) Eosinophils # (Auto) 0.4 x10^3/uL (0.0-0.7) Basophils # (Auto) 0.1 x10^3/uL (0.0-0.2) Sodium Level 142 mmol/L (136-145) Potassium Level 3.7 mmol/L (3.5-5.1) Chloride Level 107 mmol/L (98-107) Carbon Dioxide Level 25 mmol/L (21-32) Anion Gap 10 (6-14) Blood Urea Nitrogen 57 mg/dL (7-20) Creatinine 1.7 mg/dL (0.6-1.0) Estimated GFR (Cockcroft-Gault) 28.4 Glucose Level 122 mg/dL (70-99) Calcium Level 9.1 mg/dL (8.5-10.1) Magnesium Level 1.9 mg/dL (1.8-2.4) Triglycerides Level 240 mg/dL (0-150) Cholesterol Level 161 mg/dL (0-200) LDL Cholesterol, Calculated 80 mg/dL (0-100) VLDL Cholesterol, Calculated 48 mg/dL (0-40) Non-HDL Cholesterol Calculated 128 mg/dL (0-129) HDL Cholesterol 33 mg/dL (40-60) Cholesterol/HDL Ratio 4.9 Laboratory Tests Test 10/28/16 17:14 10/29/16 03:22 10/29/16 07:50 Glucose (Fingerstick) 135 mg/dL (70-99) 99 mg/dL (70-99) White Blood Count 9.3 x10^3/uL (4.0-11.0) Red Blood Count 3.03 x10^6/uL (3.50-5.40) Hemoglobin 9.3 g/dL (12.0-15.5) Hematocrit 28.5 % (36.0-47.0) Mean Corpuscular Volume 94 fL (79-100) Mean Corpuscular Hemoglobin 31 pg (25-35) Mean Corpuscular Hemoglobin Concent 33 g/dL (31-37) Red Cell Distribution Width 13.7 % (11.5-14.5) Platelet Count 373 x10^3/uL (140-400) Neutrophils (%) (Auto) 51 % (31-73) Lymphocytes (%) (Auto) 34 % (24-48) Monocytes (%) (Auto) 9 % (0-9) Eosinophils (%) (Auto) 4 % (0-3) Basophils (%) (Auto) 1 % (0-3) Neutrophils # (Auto) 4.7 x10^3uL (1.8-7.7) Lymphocytes # (Auto) 3.2 x10^3/uL (1.0-4.8) Monocytes # (Auto) 0.9 x10^3/uL (0.0-1.1) Eosinophils # (Auto) 0.4 x10^3/uL (0.0-0.7) Basophils # (Auto) 0.1 x10^3/uL (0.0-0.2) Sodium Level 142 mmol/L (136-145) Potassium Level 3.7 mmol/L (3.5-5.1) Chloride Level 107 mmol/L (98-107) Carbon Dioxide Level 25 mmol/L (21-32) Anion Gap 10 (6-14) Blood Urea Nitrogen 57 mg/dL (7-20) Creatinine 1.7 mg/dL (0.6-1.0) Estimated GFR (Cockcroft-Gault) 28.4 Glucose Level 122 mg/dL (70-99) Calcium Level 9.1 mg/dL (8.5-10.1) Magnesium Level 1.9 mg/dL (1.8-2.4) Triglycerides Level 240 mg/dL (0-150) Cholesterol Level 161 mg/dL (0-200) LDL Cholesterol, Calculated 80 mg/dL (0-100) VLDL Cholesterol, Calculated 48 mg/dL (0-40) Non-HDL Cholesterol Calculated 128 mg/dL (0-129) HDL Cholesterol 33 mg/dL (40-60) Cholesterol/HDL Ratio 4.9 Medications Current Medications Aspirin (Celi Aspirin) 325 mg 1X ONCE PO Last administered on 10/28/16 00:29 ; Start 10/27/16 at 23:15; Stop 10/27/16 at 23:16; Status DC Ondansetron HCl (Zofran) 4 mg PRN Q8HRS PRN IV NAUSEA/VOMITING; Start 10/27/16 at 23:30; Stop 10/28/16 at 23:29; Status DC Sodium Chloride 1,000 ml @ 75 mls/hr [id number] IV Last administered on 10/28/16 14:12; Start 10/27/16 at 23:30; Stop 10/28/16 at 23:29; Status DC Acetaminophen (Tylenol) 650 mg PRN Q4HRS PRN PO FEVER; Start 10/27/16 at 23:30 ; Stop 10/28/16 at 23:29; Status DC Aspirin (Ecotrin) 81 mg DAILY PO Last administered on 10/29/16 08:33; Start 10/28/16 at 09:00 Atenolol (Tenormin) 12.5 mg BID PO ; Start 10/28/16 at 09:00; Stop 10/28/16 at 11: 26; Status DC Clopidogrel Bisulfate (Plavix) 75 mg DAILY PO Last administered on 10/29/16 08: 33; Start 10/28/16 at 09:00 Cyanocobalamin (Vitamin B-12) 500 mcg DAILY PO Last administered on 10/29/16 08 :35; Start 10/28/16 at 09:00 Hydrochlorothiazide (Hydrodiuril) 25 mg DAILY PO Last administered on 10/28/16 08:26; Start 10/28/16 at 09:00; Stop 10/28/16 at 10:27; Status DC Nitroglycerin (Nitrostat) 0.4 mg PRN Q5MIN PRN SL CHEST PAIN; Start 10/28/16 at 01:45 Fish Oil (Fish Oil) 1,000 mg DAILY PO Last administered on 10/29/16 08:31; Start 10/28/16 at 09:00 Pantoprazole Sodium (Protonix) 40 mg DAILYAC PO Last administered on 10/29/16 08:31; Start 10/28/16 at 07:30 Atorvastatin Calcium (Lipitor) 20 mg QHS PO ; Start 10/28/16 at 21:00; Stop at 21:00; Status DC Venlafaxine HCl (Effexor Xr) 75 mg DAILY PO Last administered on 10/29/16 08:34 ; Start 10/28/16 at 09:00 Glipizide (Glucotrol) 5 mg DAILY PO Last administered on 10/29/16 08:31; Start 10/28/16 at 12:00 Pioglitazone HCl (Actos) 30 mg DAILY PO Last administered on 10/29/16 08:33; Start 10/28/16 at 12:00 Atorvastatin Calcium (Lipitor) 10 mg QHS PO Last administered on 10/28/16 20:15 ; Start 10/28/16 at 21:00 Vitamin D (Vitamin D3) 1,000 unit DAILY PO Last administered on 10/29/16 08:33 ; Start 10/28/16 at 12:00 Cyanocobalamin (Vitamin B-12) 1,000 mcg DAILY PO Last administered on 10/28/16 14:03; Start 10/28/16 at 12:00; Stop 10/28/16 at 16:44; Status DC Senna/Docusate Sodium (Senna Plus) 2 tab QHS PO Last administered on 10/28/16 20:14; Start 10/28/16 at 21:00 Nitroglycerin (Nitrostat) 0.4 mg PRN Q5MIN PRN SL CHEST PAIN; Start 10/28/16 at 11:15; Stop 10/28/16 at 16:45; Status DC Acetaminophen (Tylenol) 650 mg Q4HRS PRN PO MILD PAIN / TEMP; Start 10/28/16 at 11:15 Multivitamins (Thera M Plus) 1 tab DAILY PO Last administered on 10/29/16 08:31 ; Start 10/28/16 at 12:00 Fish Oil (Fish Oil) 1,000 mg DAILY PO ; Start 10/28/16 at 12:00; Stop 10/28/16 at 16:45; Status DC Sodium Chloride 1,000 ml @ 75 mls/hr [id number] IV Last administered on 10/28/16 20:15; Start 10/28/16 at 11:15 Magnesium Hydroxide (Milk Of Magnesia) 2,400 mg PRN DAILY PRN PO CONSTIPATION; Start 10/28/16 at 11:15 Metoprolol Succinate (Toprol Xl) 12.5 mg DAILY PO Last administered on 08:32; Start 10/28/16 at 12:00 Potassium Chloride (Klor-Con) 20 meq 1X ONCE PO Last administered on 10/28/16 14:08; Start 10/28/16 at 11:30; Stop 10/28/16 at 11:43; Status DC Active Scripts Active Reported [actos] 2.5 Tab 2.5 Mg PO DAILY [place] 3-6-9 1,200 mg Softgel (Fish Oil/Borage/Flax/Om3,6,9#1) 1,200 Mg Capsule 1 ,200 Mg PO DAILY Omeprazole 20 Mg Tablet.dr 20 Mg PO DAILY Pravachol (Pravastatin Sodium) 80 Mg Tablet 80 Mg PO QHS Effexor Xr (Venlafaxine Hcl) 75 Mg Cap.er.24h 75 Mg PO DAILY Nitrostat (Nitroglycerin) 0.4 Mg Tab.subl 0.4 Mg SL PRN Q5MIN PRN Glipizide Er (Glipizide) 5 Mg Tab.er.24 5 Mg PO BID Plavix (Clopidogrel Bisulfate) 75 Mg Tablet 75 Mg PO DAILY Aspir 81 (Aspirin) 81 Mg Tablet.dr 81 Mg PO DAILY Atenolol 25 Mg Tablet 12.5 Mg PO BID Vitamin B-12 (Cyanocobalamin (Vitamin B-12)) 1,000 Mcg Tablet 500 Mcg PO DAILY Hydrochlorothiazide Tablet (Hydrochlorothiazide) 25 Mg Tablet 25 Mg PO DAILY Vitals/I & O Vital Sign - Last 24 Hours 10/28/16 10/28/16 10/28/16 10/28/16 14:08 14:33 19:10 20:00 Temp 97.3 97.9 97.3 97.9 Pulse 62 58 68 Resp 16 18 B/P (MAP) 115/42 141/50 (80) 135/47 (76) Pulse Ox 99 100 O2 Delivery Room Air Room Air Room Air 10/28/16 10/29/16 10/29/16 10/29/16 23:10 03:10 07:40 08:32 Temp 98.4 98.0 98.0 98.4 98.0 98.0 Pulse 68 65 65 65 Resp 18 18 18 B/P (MAP) 142/51 (81) 109/47 (67) 109/47 (67) 109/47 Pulse Ox 98 96 96 O2 Delivery Room Air Room Air Room Air Intake and Output 10/28/16 10/28/16 10/29/16 15:00 23:00 07:00 Intake Total 480 ml 1320 ml 440 ml Output Total 1100 ml 200 ml Balance 480 ml 220 ml 240 ml RUTH CRUZ MD Oct 29, 2016 10:11
--- NOTE | 2016-10-29 10:26 | PDOC ---
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 Note lipids, increase statin, defer to internal medicine Check lipids, perhaps adjust statin dose depending on the results Inpatient rehabilitation, agree with discharge for tomorrow Subjective Feels better Objective Vital Signs Date Time Temp Pulse Resp B/P (MAP) Pulse Ox O2 Delivery O2 Flow Rate FiO2 10/29/16 08:32 65 109/47 10/29/16 07:40 98.0 18 96 Room Air 98.0 Intake and Output 10/29/16 07:00 Intake Total 2240 ml Output Total 1300 ml Balance 940 ml Intake Oral 2240 ml Output Urine Total 1300 ml # Voids 2 PHYSICAL EXAM Alert. Oriented to time, place and person. PERRL. EOMI. CN: no focal findings. Muscle tone: normal. Muscle strength: 5/5, right, 5-/5 left DTR: 2+ Plantar reflex: flexor Gait: not examined in bed. Sensory exam: no abnormal findings. Slight left dysmetria. Review of Relevant I have reviewed the following items kaylee (where applicable) has been applied. Labs Laboratory Tests Test 10/27/16 22:09 10/27/16 22:10 10/28/16 07:34 10/28/16 09:20 Glucose (Fingerstick) 94 mg/dL (70-99) 61 mg/dL (70-99) 136 mg/dL (70-99) White Blood Count 14.1 x10^3/uL (4.0-11.0) Red Blood Count 3.74 x10^6/uL (3.50-5.40) Hemoglobin 11.1 g/dL (12.0-15.5) Hematocrit 34.6 % (36.0-47.0) Mean Corpuscular Volume 92 fL (79-100) Mean Corpuscular Hemoglobin 30 pg (25-35) Mean Corpuscular Hemoglobin Concent 32 g/dL (31-37) Red Cell Distribution Width 13.8 % (11.5-14.5) Platelet Count 433 x10^3/uL (140-400) Neutrophils (%) (Auto) 51 % (31-73) Lymphocytes (%) (Auto) 38 % (24-48) Monocytes (%) (Auto) 9 % (0-9) Eosinophils (%) (Auto) 2 % (0-3) Basophils (%) (Auto) 0 % (0-3) Neutrophils # (Auto) 7.2 x10^3uL (1.8-7.7) Lymphocytes # (Auto) 5.4 x10^3/uL (1.0-4.8) Monocytes # (Auto) 1.3 x10^3/uL (0.0-1.1) Eosinophils # (Auto) 0.2 x10^3/uL (0.0-0.7) Basophils # (Auto) 0.0 x10^3/uL (0.0-0.2) Prothrombin Time 14.8 SEC (11.7-14.0) Prothromb Time International Ratio 1.2 (0.8-1.1) Activated Partial Thromboplast Time 32 SEC (24-38) Sodium Level 139 mmol/L (136-145) Potassium Level 3.4 mmol/L (3.5-5.1) Chloride Level 100 mmol/L (98-107) Carbon Dioxide Level 28 mmol/L (21-32) Anion Gap 11 (6-14) Blood Urea Nitrogen 70 mg/dL (7-20) Creatinine 2.2 mg/dL (0.6-1.0) Estimated GFR (Cockcroft-Gault) 21.1 BUN/Creatinine Ratio 32 (6-20) Glucose Level 100 mg/dL (70-99) Calcium Level 9.9 mg/dL (8.5-10.1) Total Bilirubin 0.2 mg/dL (0.2-1.0) Aspartate Amino Transf (AST/SGOT) 15 U/L (15-37) Alanine Aminotransferase (ALT/SGPT) 17 U/L (14-59) Alkaline Phosphatase 62 U/L (46-116) Troponin I Quantitative < 0.017 ng/mL (0.000-0.055) Total Protein 8.2 g/dL (6.4-8.2) Albumin 3.2 g/dL (3.4-5.0) Albumin/Globulin Ratio 0.6 (1.0-1.7) Test 10/28/16 17:14 10/29/16 03:10/29/16 07:50 Glucose (Fingerstick) 135 mg/dL (70-99) 99 mg/dL (70-99) White Blood Count 9.3 x10^3/uL (4.0-11.0) Red Blood Count 3.03 x10^6/uL (3.50-5.40) Hemoglobin 9.3 g/dL (12.0-15.5) Hematocrit 28.5 % (36.0-47.0) Mean Corpuscular Volume 94 fL (79-100) Mean Corpuscular Hemoglobin 31 pg (25-35) Mean Corpuscular Hemoglobin Concent 33 g/dL (31-37) Red Cell Distribution Width 13.7 % (11.5-14.5) Platelet Count 373 x10^3/uL (140-400) Neutrophils (%) (Auto) 51 % (31-73) Lymphocytes (%) (Auto) 34 % (24-48) Monocytes (%) (Auto) 9 % (0-9) Eosinophils (%) (Auto) 4 % (0-3) Basophils (%) (Auto) 1 % (0-3) Neutrophils # (Auto) 4.7 x10^3uL (1.8-7.7) Lymphocytes # (Auto) 3.2 x10^3/uL (1.0-4.8) Monocytes # (Auto) 0.9 x10^3/uL (0.0-1.1) Eosinophils # (Auto) 0.4 x10^3/uL (0.0-0.7) Basophils # (Auto) 0.1 x10^3/uL (0.0-0.2) Sodium Level 142 mmol/L (136-145) Potassium Level 3.7 mmol/L (3.5-5.1) Chloride Level 107 mmol/L (98-107) Carbon Dioxide Level 25 mmol/L (21-32) Anion Gap 10 (6-14) Blood Urea Nitrogen 57 mg/dL (7-20) Creatinine 1.7 mg/dL (0.6-1.0) Estimated GFR (Cockcroft-Gault) 28.4 Glucose Level 122 mg/dL (70-99) Calcium Level 9.1 mg/dL (8.5-10.1) Magnesium Level 1.9 mg/dL (1.8-2.4) Triglycerides Level 240 mg/dL (0-150) Cholesterol Level 161 mg/dL (0-200) LDL Cholesterol, Calculated 80 mg/dL (0-100) VLDL Cholesterol, Calculated 48 mg/dL (0-40) Non-HDL Cholesterol Calculated 128 mg/dL (0-129) HDL Cholesterol 33 mg/dL (40-60) Cholesterol/HDL Ratio 4.9 Laboratory Tests Test 10/28/16 17:14 10/29/16 03:22 10/29/16 07:50 Glucose (Fingerstick) 135 mg/dL (70-99) 99 mg/dL (70-99) White Blood Count 9.3 x10^3/uL (4.0-11.0) Red Blood Count 3.03 x10^6/uL (3.50-5.40) Hemoglobin 9.3 g/dL (12.0-15.5) Hematocrit 28.5 % (36.0-47.0) Mean Corpuscular Volume 94 fL (79-100) Mean Corpuscular Hemoglobin 31 pg (25-35) Mean Corpuscular Hemoglobin Concent 33 g/dL (31-37) Red Cell Distribution Width 13.7 % (11.5-14.5) Platelet Count 373 x10^3/uL (140-400) Neutrophils (%) (Auto) 51 % (31-73) Lymphocytes (%) (Auto) 34 % (24-48) Monocytes (%) (Auto) 9 % (0-9) Eosinophils (%) (Auto) 4 % (0-3) Basophils (%) (Auto) 1 % (0-3) Neutrophils # (Auto) 4.7 x10^3uL (1.8-7.7) Lymphocytes # (Auto) 3.2 x10^3/uL (1.0-4.8) Monocytes # (Auto) 0.9 x10^3/uL (0.0-1.1) Eosinophils # (Auto) 0.4 x10^3/uL (0.0-0.7) Basophils # (Auto) 0.1 x10^3/uL (0.0-0.2) Sodium Level 142 mmol/L (136-145) Potassium Level 3.7 mmol/L (3.5-5.1) Chloride Level 107 mmol/L (98-107) Carbon Dioxide Level 25 mmol/L (21-32) Anion Gap 10 (6-14) Blood Urea Nitrogen 57 mg/dL (7-20) Creatinine 1.7 mg/dL (0.6-1.0) Estimated GFR (Cockcroft-Gault) 28.4 Glucose Level 122 mg/dL (70-99) Calcium Level 9.1 mg/dL (8.5-10.1) Magnesium Level 1.9 mg/dL (1.8-2.4) Triglycerides Level 240 mg/dL (0-150) Cholesterol Level 161 mg/dL (0-200) LDL Cholesterol, Calculated 80 mg/dL (0-100) VLDL Cholesterol, Calculated 48 mg/dL (0-40) Non-HDL Cholesterol Calculated 128 mg/dL (0-129) HDL Cholesterol 33 mg/dL (40-60) Cholesterol/HDL Ratio 4.9 Medications Current Medications Aspirin (Celi Aspirin) 325 mg 1X ONCE PO Last administered on 10/28/16 00:29 ; Start 10/27/16 at 23:15; Stop 10/27/16 at 23:16; Status DC Ondansetron HCl (Zofran) 4 mg PRN Q8HRS PRN IV NAUSEA/VOMITING; Start 10/27/16 at 23:30; Stop 10/28/16 at 23:29; Status DC Sodium Chloride 1,000 ml @ 75 mls/hr [id number] IV Last administered on 10/28/16 14:12; Start 10/27/16 at 23:30; Stop 10/28/16 at 23:29; Status DC Acetaminophen (Tylenol) 650 mg PRN Q4HRS PRN PO FEVER; Start 10/27/16 at 23:30 ; Stop 10/28/16 at 23:29; Status DC Aspirin (Ecotrin) 81 mg DAILY PO Last administered on 10/29/16 08:33; Start 10/28/16 at 09:00 Atenolol (Tenormin) 12.5 mg BID PO ; Start 10/28/16 at 09:00; Stop 10/28/16 at 11: 26; Status DC Clopidogrel Bisulfate (Plavix) 75 mg DAILY PO Last administered on 10/29/16 08: 33; Start 10/28/16 at 09:00 Cyanocobalamin (Vitamin B-12) 500 mcg DAILY PO Last administered on 10/29/16 08 :35; Start 10/28/16 at 09:00 Hydrochlorothiazide (Hydrodiuril) 25 mg DAILY PO Last administered on 10/28/16 08:26; Start 10/28/16 at 09:00; Stop 10/28/16 at 10:27; Status DC Nitroglycerin (Nitrostat) 0.4 mg PRN Q5MIN PRN SL CHEST PAIN; Start 10/28/16 at 01:45 Fish Oil (Fish Oil) 1,000 mg DAILY PO Last administered on 10/29/16 08:31; Start 10/28/16 at 09:00 Pantoprazole Sodium (Protonix) 40 mg DAILYAC PO Last administered on 10/29/16 08:31; Start 10/28/16 at 07:30 Atorvastatin Calcium (Lipitor) 20 mg QHS PO ; Start 10/28/16 at 21:00; Stop at 21:00; Status DC Venlafaxine HCl (Effexor Xr) 75 mg DAILY PO Last administered on 10/29/16 08:34 ; Start 10/28/16 at 09:00 Glipizide (Glucotrol) 5 mg DAILY PO Last administered on 10/29/16 08:31; Start 10/28/16 at 12:00 Pioglitazone HCl (Actos) 30 mg DAILY PO Last administered on 10/29/16 08:33; Start 10/28/16 at 12:00 Atorvastatin Calcium (Lipitor) 10 mg QHS PO Last administered on 10/28/16 20:15 ; Start 10/28/16 at 21:00 Vitamin D (Vitamin D3) 1,000 unit DAILY PO Last administered on 10/29/16 08:33 ; Start 10/28/16 at 12:00 Cyanocobalamin (Vitamin B-12) 1,000 mcg DAILY PO Last administered on 10/28/16 14:03; Start 10/28/16 at 12:00; Stop 10/28/16 at 16:44; Status DC Senna/Docusate Sodium (Senna Plus) 2 tab QHS PO Last administered on 10/28/16 20:14; Start 10/28/16 at 21:00 Nitroglycerin (Nitrostat) 0.4 mg PRN Q5MIN PRN SL CHEST PAIN; Start 10/28/16 at 11:15; Stop 10/28/16 at 16:45; Status DC Acetaminophen (Tylenol) 650 mg Q4HRS PRN PO MILD PAIN / TEMP; Start 10/28/16 at 11:15 Multivitamins (Thera M Plus) 1 tab DAILY PO Last administered on 10/29/16 08:31 ; Start 10/28/16 at 12:00 Fish Oil (Fish Oil) 1,000 mg DAILY PO ; Start 10/28/16 at 12:00; Stop 10/28/16 at 16:45; Status DC Sodium Chloride 1,000 ml @ 75 mls/hr [id number] IV Last administered on 10/28/16 20:15; Start 10/28/16 at 11:15 Magnesium Hydroxide (Milk Of Magnesia) 2,400 mg PRN DAILY PRN PO CONSTIPATION; Start 10/28/16 at 11:15 Metoprolol Succinate (Toprol Xl) 12.5 mg DAILY PO Last administered on 08:32; Start 10/28/16 at 12:00 Potassium Chloride (Klor-Con) 20 meq 1X ONCE PO Last administered on 10/28/16 14:08; Start 10/28/16 at 11:30; Stop 10/28/16 at 11:43; Status DC Active Scripts Active Reported [actos] 2.5 Tab 2.5 Mg PO DAILY [place] 3-6-9 1,200 mg Softgel (Fish Oil/Borage/Flax/Om3,6,9#1) 1,200 Mg Capsule 1 ,200 Mg PO DAILY Omeprazole 20 Mg Tablet.dr 20 Mg PO DAILY Pravachol (Pravastatin Sodium) 80 Mg Tablet 80 Mg PO QHS Effexor Xr (Venlafaxine Hcl) 75 Mg Cap.er.24h 75 Mg PO DAILY Nitrostat (Nitroglycerin) 0.4 Mg Tab.subl 0.4 Mg SL PRN Q5MIN PRN Glipizide Er (Glipizide) 5 Mg Tab.er.24 5 Mg PO BID Plavix (Clopidogrel Bisulfate) 75 Mg Tablet 75 Mg PO DAILY Aspir 81 (Aspirin) 81 Mg Tablet.dr 81 Mg PO DAILY Atenolol 25 Mg Tablet 12.5 Mg PO BID Vitamin B-12 (Cyanocobalamin (Vitamin B-12)) 1,000 Mcg Tablet 500 Mcg PO DAILY Hydrochlorothiazide Tablet (Hydrochlorothiazide) 25 Mg Tablet 25 Mg PO DAILY Vitals/I & O Vital Sign - Last 24 Hours 10/28/16 10/28/16 10/28/16 10/28/16 14:08 14:33 19:10 20:00 Temp 97.3 97.9 97.3 97.9 Pulse 62 58 68 Resp 16 18 B/P (MAP) 115/42 141/50 (80) 135/47 (76) Pulse Ox 99 100 O2 Delivery Room Air Room Air Room Air 10/28/16 10/29/16 10/29/16 10/29/16 23:10 03:10 07:40 08:32 Temp 98.4 98.0 98.0 98.4 98.0 98.0 Pulse 68 65 65 65 Resp 18 18 18 B/P (MAP) 142/51 (81) 109/47 (67) 109/47 (67) 109/47 Pulse Ox 98 96 96 O2 Delivery Room Air Room Air Room Air Intake and Output 10/28/16 10/28/16 10/29/16 15:00 23:00 07:00 Intake Total 480 ml 1320 ml 440 ml Output Total 1100 ml 200 ml Balance 480 ml 220 ml 240 ml Images Echocardiogram: LEFT VENTRICLE The left ventricle is normal size. There is normal left ventricular wall thickness. Left ventricle systolic function is normal. The Ejection Fraction is 50-55%. There is normal LV segmental wall motion. The left ventricular diastolic function and filling is normal for age. There is no ventricular septal defect visualized. RIGHT VENTRICLE The right ventricle is normal size. The right ventricular systolic function is normal. ATRIA The left atrium size is normal. The right atrium size is normal. Injection of bubbles documented no interatrial shunt. AORTIC VALVE The aortic valve is mildly calcified. The aortic valve is trileaflet. Doppler and Color Flow revealed no significant aortic regurgitation. There is no significant aortic valvular stenosis. MITRAL VALVE Mitral annular calcification is mild. The mitral valve leaflets are calcified. There is no mitral valve stenosis. Doppler and Color Flow revealed trace mitral regurgitation. TRICUSPID VALVE The tricuspid valve is normal in structure and function. Doppler and Color Flow revealed trace to mild tricuspid regurgitation. The PA pressure was estimated at 39 mmHg. There is no tricuspid valve stenosis. PULMONIC VALVE The pulmonic valve is not well visualized. Doppler and Color Flow revealed no pulmonic valvular regurgitation. There is no pulmonic valvular stenosis. GREAT VESSELS The aortic root is normal in size. Normal pulmonary venous flow (Doppler). The IVC is normal in size and collapses >50% with inspiration. PERICARDIAL EFFUSION There is no evidence of significant pericardial effusion. Critical Notification Critical Value: No <Conclusion> Left ventricle systolic function is normal. The Ejection Fraction is 50-55%. There is normal LV segmental wall motion. Injection of bubbles documented no interatrial shunt. RORY TUTTLE MD Oct 29, 2016 10:26
[2016-10-29 11:00] VITALS: BP 141/48
[2016-10-29 14:47] VITALS: BP 120/66
[2016-10-29] MEDS: IV NORMAL SALINE 1000ML BAG 1,000 ML IV SCH (17:35)
[2016-10-29 19:51] VITALS: BP 155/34
[2016-10-29] MEDS: ATORVASTATIN CALCIUM 10 MG TABLET. PO SCH (20:08)
[2016-10-29] MEDS: SENNOSIDES/DOCUSATE 8.6/50MG TABLET. PO SCH (20:10)
[2016-10-29 23:09] VITALS: BP 119/44
[2016-10-30] MEDS: IV NORMAL SALINE 1000ML BAG 1,000 ML IV SCH (06:29)
[2016-10-30 07:29] VITALS: BP 118/43
[2016-10-30] MEDS: CHOLECALCIFEROL (VITAMIN D3) 1,000 UNIT TABLET PO SCH (08:48)
[2016-10-30] MEDS: glipiZIDE 5 MG TABLET PO SCH (08:48)
[2016-10-30] MEDS: PANTOPRAZOLE 40 MG TABLET.DR. PO SCH (08:48)
[2016-10-30] MEDS: MULTIVITAMIN with MINERAL TABLET. PO SCH (08:48)
[2016-10-30] MEDS: ASPIRIN ENTERIC COATED 81 MG TABLET.DR. PO SCH (08:48)
[2016-10-30] MEDS: OMEGA-3 FATTY ACIDS/FISH OIL 1,000 MG CAPSULE. PO SCH (08:49)
[2016-10-30] MEDS: METOPROLOL SUCC 24HR ER 25 MG TAB.ER.24H. PO SCH (08:49)
[2016-10-30] MEDS: VENLAFAXINE XR 37.5 MG CAP.ER.24H. PO SCH (08:49)
[2016-10-30] MEDS: CLOPIDOGREL BISULFATE 75 MG TABLET PO SCH (08:50)
[2016-10-30] MEDS: CYANOCOBALAMIN (VITAMIN B-12) 1,000 MCG TABLET. PO SCH (08:50)
[2016-10-30] MEDS: PIOGLITAZONE 15 MG TABLET. PO SCH (08:50)
[2016-10-30 09:01] LABS: BASO # 0.1 x10^3/uL (0.0-0.2); BASO % 1 % (0-3); EOS % 4 % (0-3); HEMATOCRIT 25.3 % (36.0-47.0); HEMOGLOBIN 8.5 g/dL (12.0-15.5); LYMPH # 3.5 x10^3/uL (1.0-4.8); LYMPH % 33 % (24-48); MEAN CORPUSCULAR HEMOGLOBIN 31 pg (25-35); MEAN CORPUSCULAR HGB CONC 34 g/dL (31-37); MEAN CORPUSCULAR VOLUME 92 fL (79-100); MONO % 10 % (0-9); NEUT % 52 % (31-73); PLATELET COUNT 369 x10^3/uL (140-400); RED BLOOD COUNT 2.76 x10^6/uL (3.50-5.40); RED CELL DISTRIBUTION WIDTH 14.1 % (11.5-14.5); WHITE BLOOD COUNT 10.6 x10^3/uL (4.0-11.0)
[2016-10-30 09:07] LABS: CALCIUM 8.4 mg/dL (8.5-10.1); CREATININE 1.5 mg/dL (0.6-1.0); GFR 32.8; POTASSIUM 3.4 mmol/L (3.5-5.1)
--- NOTE | 2016-10-30 10:22 | PDOC ---
PROGRESS NOTES Subjective Subjective feels better. still has left pronator drift and weak left hand community health consultant and mobility deficits. lab reviewed. renal function slowly improving. blood sugars and blood pressure are okay. Objective Objective Vital Signs Date Time Temp Pulse Resp B/P (MAP) Pulse Ox O2 Delivery O2 Flow Rate FiO2 10/30/16 08:49 68 118/43 10/30/16 08:00 Room Air 10/30/16 07:29 97.7 18 97 97.7 Intake and Output 10/30/16 07:00 Intake Total 740 ml Output Total 950 ml Balance -210 ml Intake Oral 740 ml Output Urine Total 950 ml # Voids 8 Physical Exam Abdomen: Soft Heart: Regular rate, Normal S1, Normal S2 Extremities: No edema General: Alert HEENT: Atraumatic Lungs: Clear to auscultation Neuro: Other (left hand community health consultant weak and left pronator drift) Psych/Mental Status: Mental status NL Skin: No rashes Assessment Assessment Problems Medical Problems:nt Problems1.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 Acute kidney injury improving. due to dehydration and volume depletion. treated with iv fluids and hctz discontinued 3. Diabetes mellitus type 2. 4. Hypertension. bp okay 5. Hyperlipidemia. 6. Coronary artery disease. anemia of chronic disease (1) Left sided numbness Status: Acute (2) Left-sided weakness Status: Acute Plan Plan of Care change iv fluids to 1/2 NS and decrease rate continue aspirin and plavix dismiss today to [facility] Comment Review of Relevant I have reviewed the following items kaylee (where applicable) has been applied. Labs Laboratory Tests Test 10/28/16 17:14 10/29/16 03:22 10/29/16 07:50 10/29/16 11:50 Glucose (Fingerstick) 135 mg/dL (70-99) 99 mg/dL (70-99) 158 mg/dL (70-99) White Blood Count 9.3 x10^3/uL (4.0-11.0) Red Blood Count 3.03 x10^6/uL (3.50-5.40) Hemoglobin 9.3 g/dL (12.0-15.5) Hematocrit 28.5 % (36.0-47.0) Mean Corpuscular Volume 94 fL (79-100) Mean Corpuscular Hemoglobin 31 pg (25-35) Mean Corpuscular Hemoglobin Concent 33 g/dL (31-37) Red Cell Distribution Width 13.7 % (11.5-14.5) Platelet Count 373 x10^3/uL (140-400) Neutrophils (%) (Auto) 51 % (31-73) Lymphocytes (%) (Auto) 34 % (24-48) Monocytes (%) (Auto) 9 % (0-9) Eosinophils (%) (Auto) 4 % (0-3) Basophils (%) (Auto) 1 % (0-3) Neutrophils # (Auto) 4.7 x10^3uL (1.8-7.7) Lymphocytes # (Auto) 3.2 x10^3/uL (1.0-4.8) Monocytes # (Auto) 0.9 x10^3/uL (0.0-1.1) Eosinophils # (Auto) 0.4 x10^3/uL (0.0-0.7) Basophils # (Auto) 0.1 x10^3/uL (0.0-0.2) Sodium Level 142 mmol/L (136-145) Potassium Level 3.7 mmol/L (3.5-5.1) Chloride Level 107 mmol/L (98-107) Carbon Dioxide Level 25 mmol/L (21-32) Anion Gap 10 (6-14) Blood Urea Nitrogen 57 mg/dL (7-20) Creatinine 1.7 mg/dL (0.6-1.0) Estimated GFR (Cockcroft-Gault) 28.4 Glucose Level 122 mg/dL (70-99) Hemoglobin A1c 8.3 % (4.8-5.6) Calcium Level 9.1 mg/dL (8.5-10.1) Magnesium Level 1.9 mg/dL (1.8-2.4) Triglycerides Level 240 mg/dL (0-150) Cholesterol Level 161 mg/dL (0-200) LDL Cholesterol, Calculated 80 mg/dL (0-100) VLDL Cholesterol, Calculated 48 mg/dL (0-40) Non-HDL Cholesterol Calculated 128 mg/dL (0-129) HDL Cholesterol 33 mg/dL (40-60) Cholesterol/HDL Ratio 4.9 Test 10/29/16 17:11 10/29/16 20:35 10/30/16 07:20 10/30/16 07:41 Glucose (Fingerstick) 126 mg/dL (70-99) 209 mg/dL (70-99) 81 mg/dL (70-99) White Blood Count 10.6 x10^3/uL (4.0-11.0) Red Blood Count 2.76 x10^6/uL (3.50-5.40) Hemoglobin 8.5 g/dL (12.0-15.5) Hematocrit 25.3 % (36.0-47.0) Mean Corpuscular Volume 92 fL (79-100) Mean Corpuscular Hemoglobin 31 pg (25-35) Mean Corpuscular Hemoglobin Concent 34 g/dL (31-37) Red Cell Distribution Width 14.1 % (11.5-14.5) Platelet Count 369 x10^3/uL (140-400) Neutrophils (%) (Auto) 52 % (31-73) Lymphocytes (%) (Auto) 33 % (24-48) Monocytes (%) (Auto) 10 % (0-9) Eosinophils (%) (Auto) 4 % (0-3) Basophils (%) (Auto) 1 % (0-3) Neutrophils # (Auto) 5.5 x10^3uL (1.8-7.7) Lymphocytes # (Auto) 3.5 x10^3/uL (1.0-4.8) Monocytes # (Auto) 1.0 x10^3/uL (0.0-1.1) Eosinophils # (Auto) 0.5 x10^3/uL (0.0-0.7) Basophils # (Auto) 0.1 x10^3/uL (0.0-0.2) Sodium Level 145 mmol/L (136-145) Potassium Level 3.4 mmol/L (3.5-5.1) Chloride Level 111 mmol/L (98-107) Carbon Dioxide Level 28 mmol/L (21-32) Anion Gap 6 (6-14) Blood Urea Nitrogen 53 mg/dL (7-20) Creatinine 1.5 mg/dL (0.6-1.0) Estimated GFR (Cockcroft-Gault) 32.8 Glucose Level 93 mg/dL (70-99) Calcium Level 8.4 mg/dL (8.5-10.1) Laboratory Tests Test 10/29/16 11:50 10/29/16 17:11 10/29/16 20:35 10/30/16 07:20 Glucose (Fingerstick) 158 mg/dL (70-99) 126 mg/dL (70-99) 209 mg/dL (70-99) White Blood Count 10.6 x10^3/uL (4.0-11.0) Red Blood Count 2.76 x10^6/uL (3.50-5.40) Hemoglobin 8.5 g/dL (12.0-15.5) Hematocrit 25.3 % (36.0-47.0) Mean Corpuscular Volume 92 fL (79-100) Mean Corpuscular Hemoglobin 31 pg (25-35) Mean Corpuscular Hemoglobin Concent 34 g/dL (31-37) Red Cell Distribution Width 14.1 % (11.5-14.5) Platelet Count 369 x10^3/uL (140-400) Neutrophils (%) (Auto) 52 % (31-73) Lymphocytes (%) (Auto) 33 % (24-48) Monocytes (%) (Auto) 10 % (0-9) Eosinophils (%) (Auto) 4 % (0-3) Basophils (%) (Auto) 1 % (0-3) Neutrophils # (Auto) 5.5 x10^3uL (1.8-7.7) Lymphocytes # (Auto) 3.5 x10^3/uL (1.0-4.8) Monocytes # (Auto) 1.0 x10^3/uL (0.0-1.1) Eosinophils # (Auto) 0.5 x10^3/uL (0.0-0.7) Basophils # (Auto) 0.1 x10^3/uL (0.0-0.2) Sodium Level 145 mmol/L (136-145) Potassium Level 3.4 mmol/L (3.5-5.1) Chloride Level 111 mmol/L (98-107) Carbon Dioxide Level 28 mmol/L (21-32) Anion Gap 6 (6-14) Blood Urea Nitrogen 53 mg/dL (7-20) Creatinine 1.5 mg/dL (0.6-1.0) Estimated GFR (Cockcroft-Gault) 32.8 Glucose Level 93 mg/dL (70-99) Calcium Level 8.4 mg/dL (8.5-10.1) Test 10/30/16 07:41 Glucose (Fingerstick) 81 mg/dL (70-99) Medications Current Medications Aspirin (Celi Aspirin) 325 mg 1X ONCE PO Last administered on 10/28/16 00:29 ; Start 10/27/16 at 23:15; Stop 10/27/16 at 23:16; Status DC Ondansetron HCl (Zofran) 4 mg PRN Q8HRS PRN IV NAUSEA/VOMITING; Start 10/27/16 at 23:30; Stop 10/28/16 at 23:29; Status DC Sodium Chloride 1,000 ml @ 75 mls/hr [id number] IV Last administered on 10/28/16 14:12; Start 10/27/16 at 23:30; Stop 10/28/16 at 23:29; Status DC Acetaminophen (Tylenol) 650 mg PRN Q4HRS PRN PO FEVER; Start 10/27/16 at 23:30 ; Stop 10/28/16 at 23:29; Status DC Aspirin (Ecotrin) 81 mg DAILY PO Last administered on 10/30/16 08:48; Start 10/28/16 at 09:00 Atenolol (Tenormin) 12.5 mg BID PO ; Start 10/28/16 at 09:00; Stop 10/28/16 at 11: 26; Status DC Clopidogrel Bisulfate (Plavix) 75 mg DAILY PO Last administered on 10/30/16 08: 50; Start 10/28/16 at 09:00 Cyanocobalamin (Vitamin B-12) 500 mcg DAILY PO Last administered on 10/30/16 08 :50; Start 10/28/16 at 09:00 Hydrochlorothiazide (Hydrodiuril) 25 mg DAILY PO Last administered on 10/28/16 08:26; Start 10/28/16 at 09:00; Stop 10/28/16 at 10:27; Status DC Nitroglycerin (Nitrostat) 0.4 mg PRN Q5MIN PRN SL CHEST PAIN; Start 10/28/16 at 01:45 Fish Oil (Fish Oil) 1,000 mg DAILY PO Last administered on 10/30/16 08:49; Start 10/28/16 at 09:00 Pantoprazole Sodium (Protonix) 40 mg DAILYAC PO Last administered on 10/30/16 08:48; Start 10/28/16 at 07:30 Atorvastatin Calcium (Lipitor) 20 mg QHS PO ; Start 10/28/16 at 21:00; Stop at 21:00; Status DC Venlafaxine HCl (Effexor Xr) 75 mg DAILY PO Last administered on 10/30/16 08:49 ; Start 10/28/16 at 09:00 Glipizide (Glucotrol) 5 mg DAILY PO Last administered on 10/30/16 08:48; Start 10/28/16 at 12:00 Pioglitazone HCl (Actos) 30 mg DAILY PO Last administered on 10/30/16 08:50; Start 10/28/16 at 12:00 Atorvastatin Calcium (Lipitor) 10 mg QHS PO Last administered on 10/29/16 20:08 ; Start 10/28/16 at 21:00 Vitamin D (Vitamin D3) 1,000 unit DAILY PO Last administered on 10/30/16 08:48 ; Start 10/28/16 at 12:00 Cyanocobalamin (Vitamin B-12) 1,000 mcg DAILY PO Last administered on 10/28/16 14:03; Start 10/28/16 at 12:00; Stop 10/28/16 at 16:44; Status DC Senna/Docusate Sodium (Senna Plus) 2 tab QHS PO Last administered on 10/29/16 20:10; Start 10/28/16 at 21:00 Nitroglycerin (Nitrostat) 0.4 mg PRN Q5MIN PRN SL CHEST PAIN; Start 10/28/16 at 11:15; Stop 10/28/16 at 16:45; Status DC Acetaminophen (Tylenol) 650 mg Q4HRS PRN PO MILD PAIN / TEMP; Start 10/28/16 at 11:15 Multivitamins (Thera M Plus) 1 tab DAILY PO Last administered on 10/30/16 08:48 ; Start 10/28/16 at 12:00 Fish Oil (Fish Oil) 1,000 mg DAILY PO ; Start 10/28/16 at 12:00; Stop 10/28/16 at 16:45; Status DC Sodium Chloride 1,000 ml @ 75 mls/hr [id number] IV Last administered on 10/30/16 06:29; Start 10/28/16 at 11:15 Magnesium Hydroxide (Milk Of Magnesia) 2,400 mg PRN DAILY PRN PO CONSTIPATION; Start 10/28/16 at 11:15 Metoprolol Succinate (Toprol Xl) 12.5 mg DAILY PO Last administered on 08:49; Start 10/28/16 at 12:00 Potassium Chloride (Klor-Con) 20 meq 1X ONCE PO Last administered on 10/28/16 14:08; Start 10/28/16 at 11:30; Stop 10/28/16 at 11:43; Status DC Active Scripts Active Reported [actos] 2.5 Tab 2.5 Mg PO DAILY Lorraine 3-6-9 1,200 mg Softgel (Fish Oil/Borage/Flax/Om3,6,9#1) 1,200 Mg Capsule 1 ,200 Mg PO DAILY Omeprazole 20 Mg Tablet.dr 20 Mg PO DAILY Pravachol (Pravastatin Sodium) 80 Mg Tablet 80 Mg PO QHS Effexor Xr (Venlafaxine Hcl) 75 Mg Cap.er.24h 75 Mg PO DAILY Nitrostat (Nitroglycerin) 0.4 Mg Tab.subl 0.4 Mg SL PRN Q5MIN PRN Glipizide Er (Glipizide) 5 Mg Tab.er.24 5 Mg PO BID Plavix (Clopidogrel Bisulfate) 75 Mg Tablet 75 Mg PO DAILY Aspir 81 (Aspirin) 81 Mg Tablet.dr 81 Mg PO DAILY Atenolol 25 Mg Tablet 12.5 Mg PO BID Vitamin B-12 (Cyanocobalamin (Vitamin B-12)) 1,000 Mcg Tablet 500 Mcg PO DAILY Hydrochlorothiazide Tablet (Hydrochlorothiazide) 25 Mg Tablet 25 Mg PO DAILY Vitals/I & O Vital Sign - Last 24 Hours 10/29/16 10/29/16 10/29/16 10/29/16 11:00 14:47 19:51 20:00 Temp 98.4 98.0 97.5 98.4 98.0 97.5 Pulse 67 67 74 Resp 16 16 20 B/P (MAP) 141/48 (79) 120/66 (84) 155/34 (74) Pulse Ox 97 98 97 O2 Delivery Room Air Room Air Room Air Room Air 10/29/16 10/30/16 10/30/16 10/30/16 23:09 03:27 07:29 08:00 Temp 98.3 97.7 98.3 97.7 Pulse 77 68 Resp 18 20 18 B/P (MAP) 119/44 (69) 118/43 (68) Pulse Ox 97 97 O2 Delivery Room Air Room Air Room Air Room Air 10/30/16 08:49 Pulse 68 B/P (MAP) 118/43 Intake and Output 10/29/16 10/29/16 10/30/16 15:00 23:00 07:00 Intake Total 500 ml 240 ml Output Total 350 ml 600 ml Balance 150 ml -360 ml RUTH CRUZ MD Oct 30, 2016 10:22
--- NOTE | 2016-10-30 10:23 | DISCH ---
DISCHARGE INSTRUCTIONS Condition on Discharge Condition on Discharge: Stable Activity After Discharge Activity Instructions for Disc: Resume previous activity Diet after Discharge Diet after Discharge: Diabetic No Calorie Level Contacting the DRNella after DC Call your doctor for: If your condition worsens Follow-Up Follow up with: dr. cruz at [facility] RUTH CRUZ MD Oct 30, 2016 10:23
--- NOTE | 2016-10-30 10:31 | PDOC ---
Provider Note Provider Note discharge summary dictated # [id number] RUTH CRUZ MD Oct 30, 2016 10:31
[2016-10-30] MEDS ORDERED: IV 1/2 NORMAL SALINE 1,000 ML IV SCH (11:00)
[2016-10-30 11:08] VITALS: BP 134/43
--- NOTE | 2016-10-30 13:13 | DS ---
DATE OF DISCHARGE: 10/30/2016 CONSULTANTS: Dr. Morataya. FINAL DIAGNOSES: 1. Clinical lacunar cerebrovascular accident involving the brain stem manifested by left-sided hemiparesis and numbness. 2. Acute kidney injury secondary to dehydration and volume depletion. 3. Diabetes mellitus type 2. 4. Hypertension. 5. Hyperlipidemia. 6. Coronary artery disease. 7. 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 HOSPITAL COURSE: The patient is an 86-year-old white female with history of diabetes mellitus type 2, hypertension, hyperlipidemia, and coronary artery disease was admitted to [facility] at the Emergency Room on 10/27/2016 with left-sided weakness and difficulty walking. She was ____ seen and developed numbness in the right side of the face, which eventually resolved, but recurred later during the day and then had some difficulty swallowing at one point developed left-sided numbness involving her left leg and some difficulty walking. She sought help at the [facility] Emergency Room where she was noted to have a left pronator drift and mild weakness in the left leg. A CAT scan of the head was negative and she underwent a workup including an MRI of the brain, which showed no acute abnormality, but did show old lacunar infarcts involving the left cerebellum and lateral thalamus. She was treated with aspirin and Plavix. She was seen by Dr. Morataya in consultation for Neurology. Carotid Doppler showed no significant stenosis and an echocardiogram was unremarkable for any type of shunt and her ejection fraction was fine. I believe she had a grade 1 diastolic left ventricular dysfunction. Her BUN was elevated at 71, creatinine 2.2 consistent with dehydration. Her renal sonogram was negative for hydronephrosis and she was treated with IV fluids and her creatinine has improved to 1.5 with a BUN now in the ____. It is unclear what her baseline is, but she did have acute kidney injury from dehydration and her hydrochlorothiazide was discontinued. Her glipizide was decreased from 5 mg b.i.d. to 5 mg once a day. She had some low blood sugars. Her atenolol was discontinued and she was switched to metoprolol. Pravastatin is not formulary, so she was switched to atorvastatin, which she is tolerating well and she received physical and occupational therapy. Because of mobility and self-care deficits, the physical therapist recommended inpatient rehabilitation. She will be transferred to [facility] later today. She will be dismissed on Tylenol 650 mg every 4 hours p.r.n., aspirin 81 mg every day, atorvastatin 10 mg at bedtime, vitamin D 1000 units every day, Plavix 75 mg every day, vitamin B12 500 mcg every day, IV one-half normal saline at 60 mL an hour continuously, metoprolol succinate 12.5 mg every day, multiple vitamin with minerals once a day, nitroglycerin 0.4 mg sublingual p.r.n. for chest pain, fish oil 1 g daily, Protonix 40 mg every day, Actos 30 mg every day, Senokot-S 2 tablets at bedtime, Effexor XR 75 mg every day, glipizide 5 mg every day. She will be transferred to [facility] later today. RUTH CRUZ MD DR: RACHELLE/tobias JOB#: [id number] / [id number]
[2016-10-30 15:26] VITALS: BP 130/55
--- NOTE | 2016-10-30 15:40 | PDOC ---
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 Note lipids,management per internal medicine Inpatient rehabilitation, agree with discharge for today Subjective No complaints Objective Vital Signs Date Time Temp Pulse Resp B/P (MAP) Pulse Ox O2 Delivery O2 Flow Rate FiO2 10/30/16 15:26 97.5 72 18 130/55 (80) 96 Room Air 97.5 Intake and Output 10/30/16 07:00 Intake Total 740 ml Output Total 950 ml Balance -210 ml Intake Oral 740 ml Output Urine Total 950 ml # Voids 8 PHYSICAL EXAM Alert. Oriented to time, place and person. PERRL. EOMI. CN: no focal findings. Muscle tone: normal. Muscle strength: 5/5, right, 5-/5 left DTR: 2+ Plantar reflex: flexor Gait: not examined in bed. Sensory exam: no abnormal findings. Slight left dysmetria. Review of Relevant I have reviewed the following items kaylee (where applicable) has been applied. Labs Laboratory Tests Test 10/28/16 17:14 10/29/16 03:22 10/29/16 07:50 10/29/16 11:50 Glucose (Fingerstick) 135 mg/dL (70-99) 99 mg/dL (70-99) 158 mg/dL (70-99) White Blood Count 9.3 x10^3/uL (4.0-11.0) Red Blood Count 3.03 x10^6/uL (3.50-5.40) Hemoglobin 9.3 g/dL (12.0-15.5) Hematocrit 28.5 % (36.0-47.0) Mean Corpuscular Volume 94 fL (79-100) Mean Corpuscular Hemoglobin 31 pg (25-35) Mean Corpuscular Hemoglobin Concent 33 g/dL (31-37) Red Cell Distribution Width 13.7 % (11.5-14.5) Platelet Count 373 x10^3/uL (140-400) Neutrophils (%) (Auto) 51 % (31-73) Lymphocytes (%) (Auto) 34 % (24-48) Monocytes (%) (Auto) 9 % (0-9) Eosinophils (%) (Auto) 4 % (0-3) Basophils (%) (Auto) 1 % (0-3) Neutrophils # (Auto) 4.7 x10^3uL (1.8-7.7) Lymphocytes # (Auto) 3.2 x10^3/uL (1.0-4.8) Monocytes # (Auto) 0.9 x10^3/uL (0.0-1.1) Eosinophils # (Auto) 0.4 x10^3/uL (0.0-0.7) Basophils # (Auto) 0.1 x10^3/uL (0.0-0.2) Sodium Level 142 mmol/L (136-145) Potassium Level 3.7 mmol/L (3.5-5.1) Chloride Level 107 mmol/L (98-107) Carbon Dioxide Level 25 mmol/L (21-32) Anion Gap 10 (6-14) Blood Urea Nitrogen 57 mg/dL (7-20) Creatinine 1.7 mg/dL (0.6-1.0) Estimated GFR (Cockcroft-Gault) 28.4 Glucose Level 122 mg/dL (70-99) Hemoglobin A1c 8.3 % (4.8-5.6) Calcium Level 9.1 mg/dL (8.5-10.1) Magnesium Level 1.9 mg/dL (1.8-2.4) Triglycerides Level 240 mg/dL (0-150) Cholesterol Level 161 mg/dL (0-200) LDL Cholesterol, Calculated 80 mg/dL (0-100) VLDL Cholesterol, Calculated 48 mg/dL (0-40) Non-HDL Cholesterol Calculated 128 mg/dL (0-129) HDL Cholesterol 33 mg/dL (40-60) Cholesterol/HDL Ratio 4.9 Test 10/29/16 17:11 10/29/16 20:35 10/30/16 07:20 10/30/16 07:41 Glucose (Fingerstick) 126 mg/dL (70-99) 209 mg/dL (70-99) 81 mg/dL (70-99) White Blood Count 10.6 x10^3/uL (4.0-11.0) Red Blood Count 2.76 x10^6/uL (3.50-5.40) Hemoglobin 8.5 g/dL (12.0-15.5) Hematocrit 25.3 % (36.0-47.0) Mean Corpuscular Volume 92 fL (79-100) Mean Corpuscular Hemoglobin 31 pg (25-35) Mean Corpuscular Hemoglobin Concent 34 g/dL (31-37) Red Cell Distribution Width 14.1 % (11.5-14.5) Platelet Count 369 x10^3/uL (140-400) Neutrophils (%) (Auto) 52 % (31-73) Lymphocytes (%) (Auto) 33 % (24-48) Monocytes (%) (Auto) 10 % (0-9) Eosinophils (%) (Auto) 4 % (0-3) Basophils (%) (Auto) 1 % (0-3) Neutrophils # (Auto) 5.5 x10^3uL (1.8-7.7) Lymphocytes # (Auto) 3.5 x10^3/uL (1.0-4.8) Monocytes # (Auto) 1.0 x10^3/uL (0.0-1.1) Eosinophils # (Auto) 0.5 x10^3/uL (0.0-0.7) Basophils # (Auto) 0.1 x10^3/uL (0.0-0.2) Sodium Level 145 mmol/L (136-145) Potassium Level 3.4 mmol/L (3.5-5.1) Chloride Level 111 mmol/L (98-107) Carbon Dioxide Level 28 mmol/L (21-32) Anion Gap 6 (6-14) Blood Urea Nitrogen 53 mg/dL (7-20) Creatinine 1.5 mg/dL (0.6-1.0) Estimated GFR (Cockcroft-Gault) 32.8 Glucose Level 93 mg/dL (70-99) Calcium Level 8.4 mg/dL (8.5-10.1) Test 10/30/16 11:31 Glucose (Fingerstick) 126 mg/dL (70-99) Laboratory Tests Test 10/29/16 17:11 10/29/16 20:35 10/30/16 07:20 10/30/16 07:41 Glucose (Fingerstick) 126 mg/dL (70-99) 209 mg/dL (70-99) 81 mg/dL (70-99) White Blood Count 10.6 x10^3/uL (4.0-11.0) Red Blood Count 2.76 x10^6/uL (3.50-5.40) Hemoglobin 8.5 g/dL (12.0-15.5) Hematocrit 25.3 % (36.0-47.0) Mean Corpuscular Volume 92 fL (79-100) Mean Corpuscular Hemoglobin 31 pg (25-35) Mean Corpuscular Hemoglobin Concent 34 g/dL (31-37) Red Cell Distribution Width 14.1 % (11.5-14.5) Platelet Count 369 x10^3/uL (140-400) Neutrophils (%) (Auto) 52 % (31-73) Lymphocytes (%) (Auto) 33 % (24-48) Monocytes (%) (Auto) 10 % (0-9) Eosinophils (%) (Auto) 4 % (0-3) Basophils (%) (Auto) 1 % (0-3) Neutrophils # (Auto) 5.5 x10^3uL (1.8-7.7) Lymphocytes # (Auto) 3.5 x10^3/uL (1.0-4.8) Monocytes # (Auto) 1.0 x10^3/uL (0.0-1.1) Eosinophils # (Auto) 0.5 x10^3/uL (0.0-0.7) Basophils # (Auto) 0.1 x10^3/uL (0.0-0.2) Sodium Level 145 mmol/L (136-145) Potassium Level 3.4 mmol/L (3.5-5.1) Chloride Level 111 mmol/L (98-107) Carbon Dioxide Level 28 mmol/L (21-32) Anion Gap 6 (6-14) Blood Urea Nitrogen 53 mg/dL (7-20) Creatinine 1.5 mg/dL (0.6-1.0) Estimated GFR (Cockcroft-Gault) 32.8 Glucose Level 93 mg/dL (70-99) Calcium Level 8.4 mg/dL (8.5-10.1) Test 10/30/16 11:31 Glucose (Fingerstick) 126 mg/dL (70-99) Medications Current Medications Aspirin (Celi Aspirin) 325 mg 1X ONCE PO Last administered on 10/28/16 00:29 ; Start 10/27/16 at 23:15; Stop 10/27/16 at 23:16; Status DC Ondansetron HCl (Zofran) 4 mg PRN Q8HRS PRN IV NAUSEA/VOMITING; Start 10/27/16 at 23:30; Stop 10/28/16 at 23:29; Status DC Sodium Chloride 1,000 ml @ 75 mls/hr [id number] IV Last administered on 10/28/16 14:12; Start 10/27/16 at 23:30; Stop 10/28/16 at 23:29; Status DC Acetaminophen (Tylenol) 650 mg PRN Q4HRS PRN PO FEVER; Start 10/27/16 at 23:30 ; Stop 10/28/16 at 23:29; Status DC Aspirin (Ecotrin) 81 mg DAILY PO Last administered on 10/30/16 08:48; Start 10/28/16 at 09:00 Atenolol (Tenormin) 12.5 mg BID PO ; Start 10/28/16 at 09:00; Stop 10/28/16 at 11: 26; Status DC Clopidogrel Bisulfate (Plavix) 75 mg DAILY PO Last administered on 10/30/16 08: 50; Start 10/28/16 at 09:00 Cyanocobalamin (Vitamin B-12) 500 mcg DAILY PO Last administered on 10/30/16 08 :50; Start 10/28/16 at 09:00 Hydrochlorothiazide (Hydrodiuril) 25 mg DAILY PO Last administered on 10/28/16 08:26; Start 10/28/16 at 09:00; Stop 10/28/16 at 10:27; Status DC Nitroglycerin (Nitrostat) 0.4 mg PRN Q5MIN PRN SL CHEST PAIN; Start 10/28/16 at 01:45 Fish Oil (Fish Oil) 1,000 mg DAILY PO Last administered on 10/30/16 08:49; Start 10/28/16 at 09:00 Pantoprazole Sodium (Protonix) 40 mg DAILYAC PO Last administered on 10/30/16 08:48; Start 10/28/16 at 07:30 Atorvastatin Calcium (Lipitor) 20 mg QHS PO ; Start 10/28/16 at 21:00; Stop at 21:00; Status DC Venlafaxine HCl (Effexor Xr) 75 mg DAILY PO Last administered on 10/30/16 08:49 ; Start 10/28/16 at 09:00 Glipizide (Glucotrol) 5 mg DAILY PO Last administered on 10/30/16 08:48; Start 10/28/16 at 12:00 Pioglitazone HCl (Actos) 30 mg DAILY PO Last administered on 10/30/16 08:50; Start 10/28/16 at 12:00 Atorvastatin Calcium (Lipitor) 10 mg QHS PO Last administered on 10/29/16 20:08 ; Start 10/28/16 at 21:00 Vitamin D (Vitamin D3) 1,000 unit DAILY PO Last administered on 10/30/16 08:48 ; Start 10/28/16 at 12:00 Cyanocobalamin (Vitamin B-12) 1,000 mcg DAILY PO Last administered on 10/28/16 14:03; Start 10/28/16 at 12:00; Stop 10/28/16 at 16:44; Status DC Senna/Docusate Sodium (Senna Plus) 2 tab QHS PO Last administered on 10/29/16 20:10; Start 10/28/16 at 21:00 Nitroglycerin (Nitrostat) 0.4 mg PRN Q5MIN PRN SL CHEST PAIN; Start 10/28/16 at 11:15; Stop 10/28/16 at 16:45; Status DC Acetaminophen (Tylenol) 650 mg Q4HRS PRN PO MILD PAIN / TEMP; Start 10/28/16 at 11:15 Multivitamins (Thera M Plus) 1 tab DAILY PO Last administered on 10/30/16 08:48 ; Start 10/28/16 at 12:00 Fish Oil (Fish Oil) 1,000 mg DAILY PO ; Start 10/28/16 at 12:00; Stop 10/28/16 at 16:45; Status DC Sodium Chloride 1,000 ml @ 75 mls/hr [id number] IV Last administered on 10/30/16 06:29; Start 10/28/16 at 11:15; Stop 10/30/16 at 10:18; Status DC Magnesium Hydroxide (Milk Of Magnesia) 2,400 mg PRN DAILY PRN PO CONSTIPATION; Start 10/28/16 at 11:15 Metoprolol Succinate (Toprol Xl) 12.5 mg DAILY PO Last administered on 08:49; Start 10/28/16 at 12:00 Potassium Chloride (Klor-Con) 20 meq 1X ONCE PO Last administered on 10/28/16 14:08; Start 10/28/16 at 11:30; Stop 10/28/16 at 11:43; Status DC Sodium Chloride 1,000 ml @ 60 mls/hr [id number] IV Last administered on 10/30/16 10:45; Start 10/30/16 at 11:00 Active Scripts Active Reported [actos] 2.5 Tab 2.5 Mg PO DAILY Ariton 3-6-9 1,200 mg Softgel (Fish Oil/Borage/Flax/Om3,6,9#1) 1,200 Mg Capsule 1 ,200 Mg PO DAILY Omeprazole 20 Mg Tablet.dr 20 Mg PO DAILY Pravachol (Pravastatin Sodium) 80 Mg Tablet 80 Mg PO QHS Effexor Xr (Venlafaxine Hcl) 75 Mg Cap.er.24h 75 Mg PO DAILY Nitrostat (Nitroglycerin) 0.4 Mg Tab.subl 0.4 Mg SL PRN Q5MIN PRN Glipizide Er (Glipizide) 5 Mg Tab.er.24 5 Mg PO BID Plavix (Clopidogrel Bisulfate) 75 Mg Tablet 75 Mg PO DAILY Aspir 81 (Aspirin) 81 Mg Tablet.dr 81 Mg PO DAILY Atenolol 25 Mg Tablet 12.5 Mg PO BID Vitamin B-12 (Cyanocobalamin (Vitamin B-12)) 1,000 Mcg Tablet 500 Mcg PO DAILY Hydrochlorothiazide Tablet (Hydrochlorothiazide) 25 Mg Tablet 25 Mg PO DAILY Vitals/I & O Vital Sign - Last 24 Hours 10/29/16 10/29/16 10/29/16 10/30/16 19:51 20:00 23:09 03:27 Temp 97.5 98.3 97.5 98.3 Pulse 74 77 Resp 20 18 20 B/P (MAP) 155/34 (74) 119/44 (69) Pulse Ox 97 97 O2 Delivery Room Air Room Air Room Air Room Air 10/30/16 10/30/16 10/30/16 10/30/16 07:29 08:00 08:49 11:08 Temp 97.7 97.5 97.7 97.5 Pulse 68 68 73 Resp 18 18 B/P (MAP) 118/43 (68) 118/43 134/43 (73) Pulse Ox 97 98 O2 Delivery Room Air Room Air Room Air 10/30/16 15:26 Temp 97.5 97.5 Pulse 72 Resp 18 B/P (MAP) 130/55 (80) Pulse Ox 96 O2 Delivery Room Air Intake and Output 10/29/16 10/29/16 10/30/16 15:00 23:00 07:00 Intake Total 500 ml 240 ml Output Total 350 ml 600 ml Balance 150 ml -360 ml RORY TUTTLE MD Oct 30, 2016 15:40
== END 2016-10-30 15:45 | DRG 65 ==
LOC: ER 21:56 → 6 SOUTH 22:55
PROVIDERS: ADMIT Internal Medicine; ATTEND Internal Medicine
DX: I63.9 Cerebral infarction, unspecified (principal); N17.9 Acute kidney failure, unspecified; G81.94 Hemiplegia, unspecified affecting left nondominant side; R29.810 Facial weakness; E78.5 Hyperlipidemia, unspecified; E78.00 Pure hypercholesterolemia, unspecified; K21.9 Gastro-esophageal reflux disease without esophagitis; I25.10 Atherosclerotic heart disease of native coronary artery without angina pectoris; I10 Essential (primary) hypertension; D63.8 Anemia in other chronic diseases classified elsewhere; R13.10 Dysphagia, unspecified; E11.51 Type 2 diabetes mellitus with diabetic peripheral angiopathy without gangrene; N32.81 Overactive bladder; F32.9 Major depressive disorder, single episode, unspecified; R26.2 Difficulty in walking, not elsewhere classified; Z98.49 Cataract extraction status, unspecified eye; Z88.0 Allergy status to penicillin; Z79.82 Long term (current) use of aspirin; Z79.84 Long term (current) use of oral hypoglycemic drugs; Z79.899 Other long term (current) drug therapy; Z82.49 Family history of ischemic heart disease and other diseases of the circulatory system; Z86.73 Personal history of transient ischemic attack (TIA), and cerebral infarction without residual deficits; Z90.81 Acquired absence of spleen; Z95.5 Presence of coronary angioplasty implant and graft; Z90.49 Acquired absence of other specified parts of digestive tract; Z79.1 Long term (current) use of non-steroidal anti-inflammatories (NSAID); Z88.2 Allergy status to sulfonamides; Z88.8 Allergy status to other drugs, medicaments and biological substances; Z91.09 Other allergy status, other than to drugs and biological substances; Z90.710 Acquired absence of both cervix and uterus
CPT/HCPCS: 99285; C8929; 36415; 70450; 70551; 76770; 80048; 80053; 80061; 82962; 83036; 83735; 84484; 85027; 85610; 85730; 93005; 93880; J7030; 92610; 97116

== ENCOUNTER 2017-03-27 22:54 | Inpatient (IN) | payer MEDICARE ==
[~2017-03-27] VITALS: Ht 152.4 cm; Wt 72.2 kg
[~2017-03-27 22:54] MED LIST changes: -CLOP75TA27 PO; +CLOP75TA57 PO; -OMEP20TA PO; +OMEP20TA8 PO; +actos PO
--- NOTE | 2017-03-27 23:15 | PHYS DOC ---
Past Medical History Past Medical History: Depression, Diabetes-Type II, High Cholesterol, Hypertension, TIA Additional Past Medical Histor: kidney problems Past Surgical History: Cholecystectomy, Hysterectomy, Splenectomy Additional Past Surgical Histo: cardiac stent Alcohol Use: None Drug Use: None Adult General Chief Complaint Chief Complaint: CHEST PAIN [facility] HPI Patient is a 86 year old female with known coronary artery disease, has one stent, has multiple risk factors experience middle of the chest pain that radiated to her right jaw imaging her feel nauseous, it lasted approximately 30 minutes. By time of arrival to the ED patient is pain-free. Patient denies any abdominal pain, back pain, leg pain that is new. Denies any new swelling. Denies any shortness of breath. Patient is compliant with her medication regimen. 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 Patient has not had any recent catheterization or stress test. Patient last saw her PCP 1 week ago for a physical. No recent illnesses or trauma Review of Systems Review of Systems Constitutional: Denies fever or chills [] Eyes: Denies change in visual acuity, redness, or eye pain [] HENT: Denies nasal congestion or sore throat [] Respiratory: Denies cough or shortness of breath [] Cardiovascular: No additional information not addressed in HPI [] GI: Denies abdominal pain, nausea, vomiting, bloody stools or diarrhea [] : Denies dysuria or hematuria [] Musculoskeletal: Denies back pain or joint pain [] Integument: Denies rash or skin lesions [] Neurologic: Denies headache, focal weakness or sensory changes except slight numbness and left lower extremity Endocrine: Denies polyuria or polydipsia [] Current Medications Current Medications Current Medications Medications (Trade) Dose Ordered Sig/Yossi Start Time Stop Time Status Last Admin Dose Admin Acetaminophen (Tylenol) 650 mg PRN Q4HRS PRN 03/28/17 00:00 03/28/17 23:59 UNV Aspirin (Children'S Aspirin) 324 mg 1X ONCE 03/27/17 23:30 03/27/17 23:31 DC 03/27/17 23:30 324 MG Ondansetron HCl (Zofran) 4 mg PRN Q8HRS PRN 03/28/17 00:00 03/28/17 23:59 UNV Allergies Allergies Allergies Coded Allergies Type Severity Reaction Last Updated Verified Sulfa (Sulfonamide Antibiotics) Allergy Intermediate 10/28/16 Yes cephalexin Allergy Intermediate 10/28/16 Yes fluconazole Allergy Intermediate 10/28/16 Yes iodine Allergy Intermediate 12/17/14 Yes nystatin Allergy Intermediate 10/28/16 Yes penicillin Allergy Intermediate 10/28/16 Yes Physical Exam Physical Exam Constitutional: Well developed, well nourished, no acute distress, non-toxic appearance. [] HENT: Normocephalic, atraumatic, Eyes:EOMI, conjunctiva normal, no discharge. [] Neck: Normal range of motion, no tenderness, supple, no stridor. No JVD Cardiovascular:Heart rate regular rhythm, no murmur, equal pulses, normal perfusion Lungs & Thorax: Bilateral breath sounds clear to auscultation, no tachypnea Abdomen: Bowel sounds normal, soft, no tenderness, no masses, no pulsatile masses. [] Skin: Warm, dry, no erythema, no rash. [] Back: No tenderness, no CVA tenderness. [] Extremities: No tenderness, no cyanosis, no DVT, ROM intact, no edema. [] Neurologic: Alert and oriented X 3, normal motor function, , no focal deficits noted. [] Psychologic: Affect normal, judgement normal, mood normal. [] Current Patient Data Vital Signs Vital Signs Date Time Temp Pulse Resp B/P (MAP) Pulse Ox O2 Delivery O2 Flow Rate FiO2 03/27/17 23:02 98.2 74 16 163/67 (99) 96 Room Air 98.2 Lab Values Laboratory Tests Test 03/27/17 23:20 03/27/17 23:35 White Blood Count 8.3 x10^3/uL (4.0-11.0) Red Blood Count 4.11 x10^6/uL (3.50-5.40) Hemoglobin 12.6 g/dL (12.0-15.5) Hematocrit 38.6 % (36.0-47.0) Mean Corpuscular Volume 94 fL (79-100) Mean Corpuscular Hemoglobin 31 pg (25-35) Mean Corpuscular Hemoglobin Concent 33 g/dL (31-37) Red Cell Distribution Width 16.3 % (11.5-14.5) H Platelet Count 253 x10^3/uL (140-400) Neutrophils (%) (Auto) 36 % (31-73) Lymphocytes (%) (Auto) 47 % (24-48) Monocytes (%) (Auto) 12 % (0-9) H Eosinophils (%) (Auto) 4 % (0-3) H Basophils (%) (Auto) 1 % (0-3) Neutrophils # (Auto) 2.9 x10^3uL (1.8-7.7) Lymphocytes # (Auto) 3.9 x10^3/uL (1.0-4.8) Monocytes # (Auto) 1.0 x10^3/uL (0.0-1.1) Eosinophils # (Auto) 0.3 x10^3/uL (0.0-0.7) Basophils # (Auto) 0.1 x10^3/uL (0.0-0.2) Sodium Level 141 mmol/L (136-145) Potassium Level 4.4 mmol/L (3.5-5.1) Chloride Level 105 mmol/L (98-107) Carbon Dioxide Level 25 mmol/L (21-32) Anion Gap 11 (6-14) Blood Urea Nitrogen 37 mg/dL (7-20) H Creatinine 1.6 mg/dL (0.6-1.0) H Estimated GFR (Cockcroft-Gault) 30.5 Glucose Level 157 mg/dL (70-99) H Calcium Level 8.7 mg/dL (8.5-10.1) POC Troponin I 0.00 ng/ml (<0.08) Laboratory Tests 03/27/17 23:20 Laboratory Tests 03/27/17 23:20 EKG EKG 2303 81, sinus rhythm, no STEMI[] Radiology/Procedures Radiology/Procedures CXR: mild pulmonary congestion, cardiomegaly. No pneumothorax or wide mediastinum.[] Course & Med Decision Making Course & Med Decision Making Pertinent Labs and Imaging studies reviewed. (See chart for details) 2354 pt in nad, still no chest pain [] Dragon Disclaimer Dragon Disclaimer This electronic medical record was generated, in whole or in part, using a voice recognition dictation system. Departure Departure Impression: Primary Impression: Chest pain Disposition: ADMITTED INPATIENT Admitting Physician: Richard Kauffman Condition: STABLE Referrals: RICHARD KAUFFMAN MD (PCP) Patel MALONE MD Mar 27, 2017 23:15
[2017-03-27] MEDS ORDERED: ASPIRIN CHEWABLE 81 MG TABLET. PO ONE (23:30)
[2017-03-27 23:34] LABS: BASO # 0.1 x10^3/uL (0.0-0.2); BASO % 1 % (0-3); EOS % 4 % (0-3); HEMATOCRIT 38.6 % (36.0-47.0); HEMOGLOBIN 12.6 g/dL (12.0-15.5); LYMPH # 3.9 x10^3/uL (1.0-4.8); LYMPH % 47 % (24-48); MEAN CORPUSCULAR HEMOGLOBIN 31 pg (25-35); MEAN CORPUSCULAR HGB CONC 33 g/dL (31-37); MEAN CORPUSCULAR VOLUME 94 fL (79-100); MONO % 12 % (0-9); NEUT % 36 % (31-73); PLATELET COUNT 253 x10^3/uL (140-400); RED BLOOD COUNT 4.11 x10^6/uL (3.50-5.40); RED CELL DISTRIBUTION WIDTH 16.3 % (11.5-14.5); WHITE BLOOD COUNT 8.3 x10^3/uL (4.0-11.0)
[2017-03-27 23:41] LABS: CALCIUM 8.7 mg/dL (8.5-10.1); CREATININE 1.6 mg/dL (0.6-1.0); GFR 30.5; POTASSIUM 4.4 mmol/L (3.5-5.1)
[2017-03-28] VITALS (7 sets, daily range): BP systolic 124–183; BP diastolic 58–77
[2017-03-28] MEDS ORDERED: ONDANSETRON PF 4 MG/2 ML VIAL. IV PRN
[2017-03-28] MEDS ORDERED: AMLO5TAB2 PO (04:58)
[2017-03-28] MEDS ORDERED: PRAV40TA2 PO (04:58)
--- NOTE | 2017-03-28 06:27 | EKG ---
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
--- NOTE | 2017-03-28 07:30 | RAD ---
Indication chest pain. A single view of the chest was obtained and is compared to a study just over 4 years earlier. There is unchanged mild cardiomegaly. There is no gross congestive heart failure. Somewhat widened mediastinum is noted appearing similar. There is no acute parenchymal infiltrate. Hiatus hernia is noted. Chronic deformity associated with the proximal right humerus is noted. IMPRESSION: No acute finding. No significant change
--- NOTE | 2017-03-28 10:04 | PDOC2 ---
BIBI KOO COFFEE SAMPLER 03/28/17 1004: CARDIAC CONSULT DATE OF CONSULT Date of Consult DATE: 03/28/17 TIME: 09:42 REASON FOR CONSULT Reason for Consult: CP REFERRING PHYSICIAN Referring Physician: Jf SOURCE Source: Chart review, Patient HISTORY OF PRESENT ILLNESS HISTORY OF PRESENT ILLNESS This is a pleasant 86 yo female admitted for complains of mid chest pressure lasting about 30 minutes and no further recurrence. Reports that this is the second time and does not want to come to the hospital but was convinced by her daughter. Positive for right jaw discomfort but otherwise no nausea, SOA, palpitations. No recent falls or injury. She had LHC in 2014 and noted with no significant disease and her RCA stent was patent at that time. Denies any heartburn, chronic NSAID use. No recent falls or injury. PAST MEDICAL HISTORY Cardiovascular: CAD, HTN, Hyperlipidemia Pulmonary: No pertinent hx CENTRAL NERVOUS SYSTEM: Other (No pertinent history) Heme/Onc: No pertinent hx Renal/: Urinary Incontinence (OAB) Endocrine: Diabetes (2) PAST SURGICAL HISTORY Past Surgical History: Appendectomy, Cholecystectomy, Cataract Removal, Tonsillectomy, Other (PCI/stent to RCA in 2012; colon polypectomy; partial thyroidectomy; splenectomy) FAMILY HISTORY Family History noncontributory SOCIAL HISTORY Smoke: No ALCOHOL: none Drugs: None Lives: with Family CURRENT MEDICATIONS CURRENT MEDICATIONS Current Medications Medications (Trade) Dose Ordered Sig/Yossi Route PRN Reason Start Time Stop Time Status Last Admin Dose Admin Aspirin (Children'S Aspirin) 324 mg 1X ONCE PO 03/27/17 23:30 03/27/17 23:31 DC 03/27/17 23:30 ALLERGIES ALLERGIES: Coded Allergies: Sulfa (Sulfonamide Antibiotics) (Verified Allergy, Intermediate, 10/28/16) cephalexin (Verified Allergy, Intermediate, 10/28/16) fluconazole (Verified Allergy, Intermediate, 10/28/16) iodine (Verified Allergy, Intermediate, 12/17/14) nystatin (Verified Allergy, Intermediate, 10/28/16) penicillin (Verified Allergy, Intermediate, 10/28/16) ROS Review of System 14 point ROS evaluated with pertinent positives noted per HPI PHYSICAL EXAM General: Alert, Oriented X3, Cooperative, No acute distress HEENT: Atraumatic, Mucous membr. moist/pink Lungs: Clear to auscultation, Normal air movement Heart: Regular rate, Normal S1, Normal S2, Other (2/6 systolic murmur to JENNY border) Abdomen: No tenderness Extremities: No cyanosis Skin: No breakdown Neuro: Normal speech, Sensation intact Psych/Mental Status: Mental status NL, Mood NL MUSCULOSKELETAL: Osteoarthritic changes both hands, Abnormal exam of both VITALS VITALS Vital Signs Date Time Temp Pulse Resp B/P (MAP) Pulse Ox O2 Delivery O2 Flow Rate FiO2 03/28/17 07:45 Room Air 03/28/17 07:34 97.9 65 18 124/58 (80) 97 97.9 LABS Lab: Laboratory Tests Test 03/27/17 23:20 03/27/17 23:35 03/28/17 04:05 White Blood Count 8.3 x10^3/uL (4.0-11.0) Red Blood Count 4.11 x10^6/uL (3.50-5.40) Hemoglobin 12.6 g/dL (12.0-15.5) Hematocrit 38.6 % (36.0-47.0) Mean Corpuscular Volume 94 fL (79-100) Mean Corpuscular Hemoglobin 31 pg (25-35) Mean Corpuscular Hemoglobin Concent 33 g/dL (31-37) Red Cell Distribution Width 16.3 % (11.5-14.5) Platelet Count 253 x10^3/uL (140-400) Neutrophils (%) (Auto) 36 % (31-73) Lymphocytes (%) (Auto) 47 % (24-48) Monocytes (%) (Auto) 12 % (0-9) Eosinophils (%) (Auto) 4 % (0-3) Basophils (%) (Auto) 1 % (0-3) Neutrophils # (Auto) 2.9 x10^3uL (1.8-7.7) Lymphocytes # (Auto) 3.9 x10^3/uL (1.0-4.8) Monocytes # (Auto) 1.0 x10^3/uL (0.0-1.1) Eosinophils # (Auto) 0.3 x10^3/uL (0.0-0.7) Basophils # (Auto) 0.1 x10^3/uL (0.0-0.2) Sodium Level 141 mmol/L (136-145) Potassium Level 4.4 mmol/L (3.5-5.1) Chloride Level 105 mmol/L (98-107) Carbon Dioxide Level 25 mmol/L (21-32) Anion Gap 11 (6-14) Blood Urea Nitrogen 37 mg/dL (7-20) Creatinine 1.6 mg/dL (0.6-1.0) Estimated GFR (Cockcroft-Gault) 30.5 Glucose Level 157 mg/dL (70-99) Calcium Level 8.7 mg/dL (8.5-10.1) Troponin I Quantitative < 0.017 ng/mL (0.000-0.055) < 0.017 ng/mL (0.000-0.055) Bedside Troponin I 0.00 ng/ml (<0.08) ECHOCARDIOGRAM ECHOCARDIOGRAM <Conclusion> Left ventricle systolic function is normal. The Ejection Fraction is 50-55%. There is normal LV segmental wall motion. Injection of bubbles documented no interatrial shunt. DATE: 10/28/16 1106 HEART CATH HEART CATH Conclusion 1. No significant coronary artery disease. The previously placed stent in a nondominant right coronary artery was widely patent. 2. Normal left ventricular systolic function with ejection fraction estimated at 55-60%. 3. No significant mitral regurgitation or aortic stenosis. Recommendations Optimization of medical therapy. DATE: 12/17/14 1523 ASSESSMENT/PLAN ASSESSMENT/PLAN 1. CP: Likely GI. Trop nml and EKG SR RBBB no changes. Recent TTE unremarkable. 2. CAD: Recent [facility] 2014 with patent RCA stent otherwise no significant disease 3. HTN: controlled 4. DM2/HLP 5. Hx of TIA: 08/2016 6. CKD: stage 3? Defer to PCP 7. LLE numbness and tingling: not affecting mobility but lasted for 2 hours. Defer to PCP Recommendations 1. MPI tomorrow 2. ASA was taken off and continued plavix due to anemia, continue plavix. 3. Start on protonix. 4. Lipid panel, continue secondary prevention measures. Problems: HEBER LARA MD 03/28/17 1804: CARDIAC CONSULT ALLERGIES ALLERGIES: Coded Allergies: Sulfa (Sulfonamide Antibiotics) (Verified Allergy, Intermediate, 10/28/16) cephalexin (Verified Allergy, Intermediate, 10/28/16) fluconazole (Verified Allergy, Intermediate, 10/28/16) iodine (Verified Allergy, Intermediate, 12/17/14) nystatin (Verified Allergy, Intermediate, 10/28/16) penicillin (Verified Allergy, Intermediate, 10/28/16) ASSESSMENT/PLAN ASSESSMENT/PLAN Pt. seen and examined. Agree with above EMERGENCY SPILL RESPONSE TECHNICIAN note. Although by description she does have classic angina given her age, recent normal heart cath and CKD, would first risk stratify for high degree of ischemia , if present, then and only then proceed with cardiac cath. Thanks for consultation. Problems: BIBI KOO APRN Mar 28, 2017 10:04 HEBER LARA MD Mar 28, 2017 18:04
--- NOTE | 2017-03-28 10:14 | EKG ---
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
[2017-03-28] MEDS ORDERED: MAGNESIUM HYDROXIDE 2,400 MG/30 ML ORAL.SUSP. PO PRN (10:15)
[2017-03-28] MEDS ORDERED: ACETAMINOPHEN 325 MG TABLET. PO PRN ×2 (10:15)
[2017-03-28] MEDS ORDERED: NITROGLYCERIN SUBLINGUAL 0.4 MG BOTTLE OF 25. SL PRN ×2 (10:15)
[2017-03-28 10:19] LABS: CHOLESTEROL/HDL RATIO 3.8
--- NOTE | 2017-03-28 10:33 | PDOC ---
Provider Note Provider Note history and physical dictated # [id number] RUTH CRUZ MD Mar 28, 2017 10:33
--- NOTE | 2017-03-28 11:09 | HP ---
ADMIT DATE: 03/28/2017 LOCATION: She is in room 256. HISTORY OF PRESENT ILLNESS: The patient is an 86-year-old white female who has a history of coronary artery disease and history of right coronary artery angioplasty and stent placed in 2012, who has diabetes mellitus type 2 with microalbuminuria, hyperlipidemia, and hyperthyroidism, was admitted to [facility] through the Emergency Room on 03/26/2017 with 30 minute episode of retrosternal chest discomfort radiating to her right jaw. She did not have any sublingual nitroglycerin to take and it lasted 30 minutes and resolved spontaneously by the time EMT arrived and she was sent to the [facility] Emergency Room where she was pain free without any acute EKG changes and chest x-ray was negative, initial troponin level negative. The patient is currently pain free. Her labs did show an elevated BUN of 36 and creatinine of 1.7. She said the chest pain was similar to her angina that she had in the past. She also had a similar episode she said and did tell anybody on Tuesday when she was out shopping and it also lasted 30 minutes and resolved spontaneously. She then admits to some dyspnea on exertion. She had a recent echocardiogram per the nurse practitioner fish smoker a couple of months ago which showed a preserved left ventricular ejection fraction. She is therefore admitted for further evaluation of her chest pain and also abnormal renal function. ALLERGIES AND INTOLERANCES: TO SULFA, KEFLEX, FLUCONAZOLE, IODINE, NYSTATIN, AND PENICILLIN, ALSO LISINOPRIL CAUSED HYPERKALEMIA AND CRESTOR CAUSED MYALGIAS. MEDICATIONS: Include Effexor XR 75 mg every day, fish oil 1 g every day, glipizide 5 mg every day, metoprolol succinate 12.5 mg every day, multiple vitamin 1 every day, nitroglycerin sublingual p.r.n., Plavix 75 mg every day, pravastatin 80 mg every day, Protonix 40 mg every day, Senokot-S 2 tablets at bedtime, vitamin B12 1000 mg a day and vitamin D 1000 units a day. PAST MEDICAL HISTORY: Significant for coronary artery disease and she underwent a right coronary artery angioplasty and stent in 2012. She has a history of hyperthyroidism, currently off medications followed by an road monkey. Also has a history of hyperlipidemia, coronary artery disease, diabetes mellitus with microalbuminuria, anemia. Her stool was heme negative x 3 recently, underwent an EGD which showed gastritis, esophagitis and nonobstructing Schatzki ring. She has diverticulosis, had a partial thyroidectomy, colonoscopy in 2014. She has had a splenectomy, appendectomy and cataract extraction in the past, had a melanoma excised from her right clavicular area in 01/2016, a benign colon polypectomy in 2007, cholecystectomy and tonsillectomy. 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 SOCIAL HISTORY: She does not drink alcohol nor does she smoke cigarettes and is an independent ambulator. FAMILY HISTORY: Noncontributory. REVIEW OF SYSTEMS: GENERAL: She denies any fever, chills or sweats in the last 3 days. CARDIOVASCULAR: She had the chest pain. PULMONARY: Some dyspnea on exertion, but no cough. GASTROINTESTINAL: She is constipated, has not had a bowel movement in a few days, which she says is not necessarily abnormal for her. ENDOCRINE: She has diabetes mellitus. SKIN: No rashes. Rest of systems reviewed are negative except as stated in history of present illness. PHYSICAL EXAMINATION: VITAL SIGNS: Temperature is 97.9 degrees, apical pulse regular at 65, respiratory rate 18, blood pressure 124/58, oxygen saturation 97% room air. HEENT: Eyes: Gaze is conjugate. Extraocular muscles are intact. Mouth: Tongue is midline. NECK: There is no cervical lymphadenopathy or thyroid enlargement. HEART: Reveals an S1, S2. There is no S3 or murmur. LUNGS: Clear. ABDOMEN: Soft with no hepatosplenomegaly, masses or tenderness. EXTREMITIES: Lower extremities without edema. SKIN: No rashes. 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 LABORATORY DATA: White count 8.3, hemoglobin 12.6 and platelet count 253,000, 136 polys and 47 lymphocytes. Sodium 141, potassium 4.4, chloride 105, total CO2 is 25, BUN 37, creatinine 1.6, blood sugar 157. Troponin level negative x 2. She had a chest x-ray done which showed no acute abnormality. An electrocardiogram was also done which showed no acute abnormality. She had normal sinus rhythm, left axis deviation, left anterior hemiblock. ASSESSMENT: 1. Chest pain. She said it was similar to her angina pectoris in the past and does have known coronary artery disease. 2. Coronary artery disease with a history of right coronary artery angioplasty and stent in 2012. 3. Diabetes mellitus type 2 with microalbuminuria. 4. Hyperthyroidism 5. Hyperlipidemia. 6. Acute kidney injury versus acute kidney injury on top of chronic kidney disease. It is unclear what her baseline BUN and creatinine is. PLAN: At this time is to do serial cardiac enzymes. I discussed the case with the nurse practitioner fish smoker. Apparently, the camera is broken at this time for the stress test, so that will be fixed later today and she will have a myocardial perfusion imaging stress test tomorrow. In the meantime, we will give her some IV fluids. Recheck her labs tomorrow. Continue with her home medications including sublingual nitroglycerin p.r.n., was told to notify the nurse that if she has any further chest pain. An echocardiogram was done a couple of months ago, so will not be repeated. We will monitor blood sugars on a diabetic cardiac diet. RUTH CRUZ MD DR: RACHELLE/tobias JOB#: [id number] / [id number]
[2017-03-28] MEDS: IV 1/2 NORMAL SALINE 1,000 ML IV SCH (11:24)
[2017-03-28] MEDS: MULTIVITAMIN with MINERAL TABLET. PO SCH (11:25)
[2017-03-28] MEDS: OMEGA-3 FATTY ACIDS/FISH OIL 1,000 MG CAPSULE. PO SCH (11:25)
[2017-03-28] MEDS: CLOPIDOGREL BISULFATE 75 MG TABLET PO SCH (11:25)
[2017-03-28] MEDS: CYANOCOBALAMIN (VITAMIN B-12) 1,000 MCG TABLET. PO SCH (11:25)
[2017-03-28] MEDS: METOPROLOL SUCC 24HR ER 25 MG TAB.ER.24H. PO SCH (11:25)
[2017-03-28] MEDS: PANTOPRAZOLE 40 MG TABLET.DR. PO SCH (11:25)
[2017-03-28] MEDS: CHOLECALCIFEROL (VITAMIN D3) 1,000 UNIT TABLET PO SCH (11:25)
[2017-03-28] MEDS: glipiZIDE 5 MG TABLET PO SCH (11:25)
[2017-03-28] MEDS: SENNOSIDES/DOCUSATE 8.6/50MG TABLET. PO SCH (11:25)
[2017-03-28] MEDS: VENLAFAXINE XR 37.5 MG CAP.ER.24H. PO SCH (11:25)
[2017-03-28] MEDS: ISOSORBIDE MONONITRATE ER 30 MG TAB.ER.24H PO SCH (18:12)
[2017-03-28] MEDS ORDERED: PRAVASTATIN 40 MG PO SCH (21:00)
[2017-03-29] MEDS: IV 1/2 NORMAL SALINE 1,000 ML IV SCH (02:36)
[2017-03-29 03:00] VITALS: BP 124/58
[2017-03-29 07:00] VITALS: BP 165/73
[2017-03-29] MEDS ORDERED: PANTOPRAZOLE 40 MG TABLET.DR. PO SCH (07:30)
--- NOTE | 2017-03-29 08:40 | PDOC ---
PROGRESS NOTES Subjective Subjective denies chest pain. cardiac enzymes negative. wishes to be DNR and order written, . lab pending, blood pressure is okay. Objective Objective Vital Signs Date Time Temp Pulse Resp B/P (MAP) Pulse Ox O2 Delivery O2 Flow Rate FiO2 03/29/17 07:38 Room Air 03/29/17 03:00 98.1 63 20 124/58 (80) 94 98.1 Physical Exam Abdomen: Soft Heart: Regular rate, Normal S1, Normal S2 Extremities: No edema General: Alert HEENT: Atraumatic Lungs: Clear to auscultation Neuro: Normal speech Psych/Mental Status: Mental status NL Skin: No rashes Assessment Assessment Problems1. Chest pain. cardiac enzymes negative 2. Coronary artery disease with a history of right coronary artery angioplasty and stent in 2012. 3. Diabetes mellitus type 2 with microalbuminuria. 4. Hyperthyroidism 5. Hyperlipidemia. 6. Acute kidney injury versus acute kidney injury on top of chronic kidney disease. It is unclear what her baseline BUN and creatinine is. Medical Problems: (1) Chest pain Status: Acute Plan Plan of Care lab pending MPI stress test today d/c iv fluids dismiss today if MPI negative avoid nsaid Comment Review of Relevant I have reviewed the following items kaylee (where applicable) has been applied. Labs Laboratory Tests Test 03/27/17 23:20 03/27/17 23:35 03/28/17 04:05 03/28/17 10:20 White Blood Count 8.3 x10^3/uL (4.0-11.0) Red Blood Count 4.11 x10^6/uL (3.50-5.40) Hemoglobin 12.6 g/dL (12.0-15.5) Hematocrit 38.6 % (36.0-47.0) Mean Corpuscular Volume 94 fL (79-100) Mean Corpuscular Hemoglobin 31 pg (25-35) Mean Corpuscular Hemoglobin Concent 33 g/dL (31-37) Red Cell Distribution Width 16.3 % (11.5-14.5) Platelet Count 253 x10^3/uL (140-400) Neutrophils (%) (Auto) 36 % (31-73) Lymphocytes (%) (Auto) 47 % (24-48) Monocytes (%) (Auto) 12 % (0-9) Eosinophils (%) (Auto) 4 % (0-3) Basophils (%) (Auto) 1 % (0-3) Neutrophils # (Auto) 2.9 x10^3uL (1.8-7.7) Lymphocytes # (Auto) 3.9 x10^3/uL (1.0-4.8) Monocytes # (Auto) 1.0 x10^3/uL (0.0-1.1) Eosinophils # (Auto) 0.3 x10^3/uL (0.0-0.7) Basophils # (Auto) 0.1 x10^3/uL (0.0-0.2) Sodium Level 141 mmol/L (136-145) Potassium Level 4.4 mmol/L (3.5-5.1) Chloride Level 105 mmol/L (98-107) Carbon Dioxide Level 25 mmol/L (21-32) Anion Gap 11 (6-14) Blood Urea Nitrogen 37 mg/dL (7-20) Creatinine 1.6 mg/dL (0.6-1.0) Estimated GFR (Cockcroft-Gault) 30.5 Glucose Level 157 mg/dL (70-99) Calcium Level 8.7 mg/dL (8.5-10.1) Troponin I Quantitative < 0.017 ng/mL (0.000-0.055) < 0.017 ng/mL (0.000-0.055) < 0.017 ng/mL (0.000-0.055) Bedside Troponin I 0.00 ng/ml (<0.08) Triglycerides Level 220 mg/dL (0-150) Cholesterol Level 160 mg/dL (0-200) LDL Cholesterol, Calculated 74 mg/dL (0-100) VLDL Cholesterol, Calculated 44 mg/dL (0-40) Non-HDL Cholesterol Calculated 118 mg/dL (0-129) HDL Cholesterol 42 mg/dL (40-60) Cholesterol/HDL Ratio 3.8 Laboratory Tests Test 03/28/17 10:20 Troponin I Quantitative < 0.017 ng/mL (0.000-0.055) Medications Current Medications Aspirin (Children'S Aspirin) 324 mg 1X ONCE PO Last administered on t 23:30; Start 03/27/17 at 23:30; Stop 03/27/17 at 23:31; Status DC Ondansetron HCl (Zofran) 4 mg PRN Q8HRS PRN IV NAUSEA/VOMITING; Start at 00:00; Stop 03/28/17 at 23:59; Status DC Acetaminophen (Tylenol) 650 mg PRN Q4HRS PRN PO FEVER; Start 03/28/17 at 00:00 ; Stop 03/28/17 at 23:59; Status Cancel Nitroglycerin (Nitrostat) 0.4 mg PRN Q5MIN PRN SL CHEST PAIN; Start 03/28/17 at 00:00; Stop 03/28/17 at 23:59; Status Cancel Sodium Chloride 1,000 ml @ 60 mls/hr [id number] IV Last administered on 02:36; Start 03/28/17 at 10:15 Acetaminophen (Tylenol) 650 mg PRN Q6HRS PRN PO MILD PAIN / TEMP; Start at 10:15 Magnesium Hydroxide (Milk Of Magnesia) 2,400 mg PRN DAILY PRN PO CONSTIPATION; Start 03/28/17 at 10:15 Venlafaxine HCl (Effexor Xr) 75 mg DAILY PO Last administered on 03/28/17 11: 25; Start 03/28/17 at 11:00 Fish Oil (Fish Oil) 1,000 mg DAILY PO Last administered on 03/28/17 11:25; Start 03/28/17 at 11:00 Glipizide (Glucotrol) 5 mg DAILY PO Last administered on 03/28/17 11:25; Start 03/28/17 at 11:00 Metoprolol Succinate (Toprol Xl) 12.5 mg DAILY PO Last administered on 11:25; Start 03/28/17 at 11:00 Nitroglycerin (Nitrostat) 0.4 mg PRN Q5MIN PRN SL CHEST PAIN; Start 03/28/17 at 10:15 Multivitamins (Thera M Plus) 1 tab DAILY PO Last administered on 03/28/17 11: 25; Start 03/28/17 at 11:00 Clopidogrel Bisulfate (Plavix) 75 mg DAILYWBKFT PO Last administered on 11:25; Start 03/28/17 at 11:00 Pantoprazole Sodium (Protonix) 40 mg DAILYAC PO Last administered on 11:25; Start 03/28/17 at 11:00 Senna/Docusate Sodium (Senna Plus) 2 tab DAILY PO Last administered on 11:25; Start 03/28/17 at 11:00 Cyanocobalamin (Vitamin B-12) 1,000 mcg DAILY PO Last administered on 11:25; Start 03/28/17 at 11:00 Vitamin D (Vitamin D3) 1,000 unit DAILY PO Last administered on 03/28/17 11: 25; Start 03/28/17 at 11:00 Pantoprazole Sodium (Protonix) 40 mg DAILYAC PO ; Start 03/29/17 at 07:30; Status UNV Isosorbide Mononitrate (Imdur) 30 mg DAILY PO Last administered on 03/28/17 18:12; Start 03/28/17 at 18:30 Non-Formulary Medication 2 ea HS PO Last administered on 03/28/17 20:47; Start 03/28/17 at 21:00 Active Scripts Active Reported Amlodipine Besylate 5 Mg Tablet 5 Mg PO DAILY Pravastatin Sodium 40 Mg Tablet 40 Mg PO BID [actos] 2.5 Tab 2.5 Mg PO DAILY Effexor Xr (Venlafaxine Hcl) 75 Mg Cap.er.24h 75 Mg PO DAILY Nitrostat (Nitroglycerin) 0.4 Mg Tab.subl 0.4 Mg SL PRN Q5MIN PRN Glipizide Er (Glipizide) 5 Mg Tab.er.24 5 Mg PO BID Plavix (Clopidogrel Bisulfate) 75 Mg Tablet 75 Mg PO DAILY Aspir 81 (Aspirin) 81 Mg Tablet.dr 81 Mg PO DAILY Atenolol 25 Mg Tablet 12.5 Mg PO BID Vitamin B-12 (Cyanocobalamin (Vitamin B-12)) 1,000 Mcg Tablet 500 Mcg PO DAILY Vitals/I & O Vital Sign - Last 24 Hours 03/28/17 03/28/17 03/28/17 03/28/17 10:49 11:25 14:33 14:34 Temp 97.9 97.6 97.9 97.6 Pulse 71 71 66 Resp 19 19 B/P (MAP) 170/73 (105) 170/73 158/72 (100) Pulse Ox 97 98 O2 Delivery Room Air Room Air 03/28/17 03/28/17 03/28/17 03/28/17 18:12 19:00 19:42 23:00 Temp 97.9 98.1 97.9 98.1 Pulse 66 101 99 Resp 17 21 B/P (MAP) 158/72 159/70 (99) 157/69 (98) Pulse Ox 96 96 O2 Delivery Room Air Room Air Room Air 03/29/17 03/29/17 03:00 07:38 Temp 98.1 98.1 Pulse 63 Resp 20 B/P (MAP) 124/58 (80) Pulse Ox 94 O2 Delivery Room Air Room Air RUTH CRUZ MD Mar 29, 2017 08:40
[2017-03-29 08:50] LABS: ALBUMIN 2.9 g/dL (3.4-5.0); ALBUMIN/GLOBULIN RATIO 0.8 (1.0-1.7); CALCIUM 8.5 mg/dL (8.5-10.1); CREATININE 1.5 mg/dL (0.6-1.0); GFR 32.8; POTASSIUM 3.7 mmol/L (3.5-5.1); TOTAL BILIRUBIN 0.3 mg/dL (0.2-1.0); TOTAL PROTEIN 6.5 g/dL (6.4-8.2)
[2017-03-29] MEDS: ISOSORBIDE MONONITRATE ER 30 MG TAB.ER.24H PO SCH (08:51)
[2017-03-29] MEDS: PANTOPRAZOLE 40 MG TABLET.DR. PO SCH (08:51)
[2017-03-29] MEDS: CLOPIDOGREL BISULFATE 75 MG TABLET PO SCH (08:51)
[2017-03-29] MEDS ORDERED: REGADENOSON 0.4 MG/5 ML DISP.SYRIN. IV ONE (09:30)
[2017-03-29 10:50] VITALS: BP 149/68
[2017-03-29] MEDS: VENLAFAXINE XR 37.5 MG CAP.ER.24H. PO SCH (11:53)
[2017-03-29] MEDS: OMEGA-3 FATTY ACIDS/FISH OIL 1,000 MG CAPSULE. PO SCH (11:53)
[2017-03-29] MEDS: glipiZIDE 5 MG TABLET PO SCH (11:54)
[2017-03-29] MEDS: CYANOCOBALAMIN (VITAMIN B-12) 1,000 MCG TABLET. PO SCH (11:54)
[2017-03-29] MEDS: CHOLECALCIFEROL (VITAMIN D3) 1,000 UNIT TABLET PO SCH (11:54)
[2017-03-29] MEDS: MULTIVITAMIN with MINERAL TABLET. PO SCH (11:54)
[2017-03-29] MEDS: SENNOSIDES/DOCUSATE 8.6/50MG TABLET. PO SCH (11:54)
[2017-03-29] MEDS: METOPROLOL SUCC 24HR ER 25 MG TAB.ER.24H. PO SCH (12:00)
[2017-03-29] MEDS ORDERED: amLODIPine BESYLATE 5 MG TABLET PO ONE (14:00)
--- NOTE | 2017-03-29 14:04 | PDOC ---
CARDIO Progress Notes Date and Time Date of Service 03/29/2017 Time of Evaluation 1210 Subjective Subjective: No Chest Pain, No shortness of breath, No Palpitations, Other ( tolerated stress test well) Vitals Vitals Vital Signs Date Time Temp Pulse Resp B/P (MAP) Pulse Ox O2 Delivery O2 Flow Rate FiO2 03/29/17 12:00 80 175/76 03/29/17 10:50 98.1 18 95 Room Air 98.1 Weight Weight [ ] Input and Output Intake and Output Intake and Output 03/30/17 07:00 Output Total 400 ml Balance -400 ml Output Urine Total 400 ml Laboratory Labs Laboratory Tests Test 03/29/17 08:27 Sodium Level 141 mmol/L (136-145) Potassium Level 3.7 mmol/L (3.5-5.1) Chloride Level 108 mmol/L (98-107) Carbon Dioxide Level 26 mmol/L (21-32) Anion Gap 7 (6-14) Blood Urea Nitrogen 30 mg/dL (7-20) Creatinine 1.5 mg/dL (0.6-1.0) Estimated GFR (Cockcroft-Gault) 32.8 BUN/Creatinine Ratio 20 (6-20) Glucose Level 100 mg/dL (70-99) Calcium Level 8.5 mg/dL (8.5-10.1) Total Bilirubin 0.3 mg/dL (0.2-1.0) Aspartate Amino Transf (AST/SGOT) 14 U/L (15-37) Alanine Aminotransferase (ALT/SGPT) 13 U/L (14-59) Alkaline Phosphatase 50 U/L (46-116) Total Protein 6.5 g/dL (6.4-8.2) Albumin 2.9 g/dL (3.4-5.0) Albumin/Globulin Ratio 0.8 (1.0-1.7) Physical Exam HEENT: Neck Supple W Full Motion Chest: Symmetric LUNGS: Clear to Auscultation Heart: S1S2, RRR (SR) Abdomen: Soft N/T Extremities: No Calf Tenderness Neurology: alert, oriented, follow commands Assessment Assessment 1. CP: Likely GI. No further recurrence overnight. 2. CAD: Recent [facility] 2014 with patent RCA stent otherwise no significant disease 3. HTN: labile 4. DM2/HLP 5. Hx of TIA: 08/2016 6. CKD: stage 3? Defer to PCP Recommendations 1. MPI completion today if unremarkable then follow up in 4 weeks. 2. Continue plavix, statin. x1 PSVT episode and will increase toprol. 3. Norvasc x1. Ultimately would need to start on ARB per CKD/DM2 guidelines if renal function is deemed at its baseline. BIBI KOO APRN Mar 29, 2017 14:04
[2017-03-29 15:36] VITALS: BP 143/65
--- NOTE | 2017-03-29 16:25 | RAD ---
APPROVED REPORT Test Type: Pharmacological Stress Nurse/Tech: fredrick weiner Test Indications: chest pain Medications: CAD, CARDIAC STENT, SEE EHR Medical History: SEE EHR Resting ECG: STROKE, DIABETES, SEE EHR Resting Heart Rate: SR WITH BBB bpm Resting Blood Pressure: 129/60mmHg Pretest Chest Pain: No chest pain Nurse/Tech Notes LUNG SOUNDS CLEAR, S1S2 WNL. Consent: The procedure was explained to the patient in lay terms. Informed consent was witnessed. Mendoza eout was entered into [employer] History and Stress Test performed by LUCAS Amezquita, JIMBO (Lakeshia) (N) Pharm. Details Pharmacologic stress testing was performed using 0.4mg per 5ml of regadenoson given intravenously ove r 7-10 seconds. Stress Symptoms HEADACE POST EXERCISE Reason for Termination: Infusion complete Max HR: 77 bpm Max Blood Pressure: 130/47mmHg Chest Pain: No. Arrhythmia: No. ST Change: No. INTERPRETATION Stress EKG Conclusion: No evidence of stress induced EKG changes. Imaging Protocol IMAGE PROTOCOL: Rest Tc-99m/stress Tc-99m 1 day Rest: Stress: Viability: Radiopharm.Tc99m WcjczkekaGc10j Sestamibi Dose12.3mCi 32mCi Duration 15min. 10min. Img Date 03/29/2017 03/29/2017 Inj-Img [id number]. 90min. Rest Admin Site:IV - Right ForearmAdministrator:AGUSTINA Uriarte Stress Admin Site: IV - Right ForearmAdministrator: LUCAS Amezquita, JIMBO (R)(N) STRESS DATA End Diast. Vol.80.0mlAv. Heart Rate69.0bpm End Syst. Vol.25.0mlCO Index BSA0.0L/min Myocardial Mqjs914.0gEject. Ceotxosx67.0% Stress Rates Pk. Fill Rate3.03EDV/secLVtime Pk. Fill 256.70msec Pk. Empty Rate3.88ESV/secLVtime Pk. Upwnm811.49msec 06/01 Pk. Fill1.05EDV/sec Stress Scores Regional WT0.00Summed WT1.00 Regional WM0.00Summed WM0.00 The rest and stress images show normal perfusion, normal contraction and thickening. LV Perf. Quant 17 Seg. SSS1.00 17 Seg. SRS1.00 17 Seg. SDS0.00 Stress Defect Extent (% LAD)0.00Rest Defect Extent (% LAD)0.00Rev. Defect Extent (% LAD)0.00 Stress Defect Extent (% LCX) 2.50Rest Defect Extent (% LCX)0.00Rev. Defect Extent (% LCX)0.00 Stress Defect Extent (% RCA)0.00Rest Defect Extent (% RCA)0.00Rev. Defect Extent (% RCA)0.00 Stress Defect Extent (% ANDRES)2.00Rest Defect Extent (% ANDRES)0.00Rev. Defect Extent (% ANDRES)0.70 Other Information Quality:Good Risk Assessment: Low Risk Conclusion 1. No evidence of EKG changes with stress testing. 2. Normal perfusion at stress/rest. 3. Low risk study. 4. EF > 60%.
[2017-03-29] MEDS ORDERED: ATORVASTATIN CALCIUM 40 MG TABLET. PO SCH (21:00)
[2017-03-30] MEDS ORDERED: METOPROLOL SUCC 24HR ER 25 MG TAB.ER.24H. PO SCH (09:00)
--- NOTE | 2017-03-30 10:44 | PDOC ---
Provider Note Provider Note discharge summary dictated # [id number] RUTH CRUZ MD Mar 30, 2017 10:44
--- NOTE | 2017-03-30 12:20 | DS ---
DATE OF DISCHARGE: 03/29/2017 DATE OF ADMISSION: 03/28/2017 DATE OF DISCHARGE: 03/29/2017 COMMUNITY SERVICE WORKER: Dr. Irwin. FINAL DIAGNOSES: 1. Chest pain, possibly secondary to esophageal spasm. 2. Coronary artery disease with history of right coronary artery angioplasty and stent in 2012. 3. Diabetes mellitus type 2 with microalbuminuria. 4. Hyperthyroidism. 5. Hyperlipidemia. 6. Acute kidney injury on top of chronic kidney disease stage 3 versus chronic kidney disease stage 3. It is unclear what her baseline BUN and creatinine is. 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 She did not have any sublingual nitroglycerin at home and the pain resolved by the time the EMT arrived and was sent to the [facility] Emergency Room where she was free of any chest pain. An EKG and chest x-ray and initial troponin levels were negative. Subsequent to that in the hospital, BUN was 36, creatinine 1.7. It is unclear what her baseline is. She was started on IV fluids. She was seen by Dr. Irwin in consultation. She had an echocardiogram recently done a couple of months prior to admission, which was okay per the nurse practitioner all round logger and the patient underwent a myocardial perfusion imaging stress test, which was negative. She had no recurrent chest pain. DISCHARGE MEDICATIONS: She was dismissed to home on nitroglycerin 0.4 mg sublingual p.r.n., fish oil 1 g every day, glipizide 5 mg every day, metoprolol succinate 12.5 mg every day, multiple vitamin once a day, Plavix 75 mg every day, pravastatin 80 mg every day, Protonix 40 mg every day, Senokot-S 2 tablets at bedtime, vitamin B12 1000 mcg every day, vitamin D 1000 units every day. She was prescribed Imdur 30 mg every day. The nurses are going to check with all round logger if she passes stress test to see if that was necessary as it was started the day before by the all round logger. FOLLOWUP: She will follow up and see Dr. Kauffman in the office next week. Take antacids p.r.n., also, and to continue with her Protonix. RUTH KAUFFMAN MD DR: RACHELLE/tobias JOB#: [id number] / [id number]
== END 2017-03-29 17:23 | disposition home or self-care (01) | DRG 683 ==
LOC: ER 22:54 → 2 SOUTH 23:57 → OBSVTOIN 03-28 10:25
PROVIDERS: ADMIT Internal Medicine; ATTEND Internal Medicine
DX: I12.9 Hypertensive chronic kidney disease with stage 1 through stage 4 chronic kidney disease, or unspecified chronic kidney disease (principal); N17.9 Acute kidney failure, unspecified; E11.22 Type 2 diabetes mellitus with diabetic chronic kidney disease; E11.69 Type 2 diabetes mellitus with other specified complication; I69.354 Hemiplegia and hemiparesis following cerebral infarction affecting left non-dominant side; K22.4 Dyskinesia of esophagus; E87.5 Hyperkalemia; E05.90 Thyrotoxicosis, unspecified without thyrotoxic crisis or storm; E78.00 Pure hypercholesterolemia, unspecified; E78.5 Hyperlipidemia, unspecified; F32.9 Major depressive disorder, single episode, unspecified; N18.3 Chronic kidney disease, stage 3 (moderate); K57.90 Diverticulosis of intestine, part unspecified, without perforation or abscess without bleeding; Z66 Do not resuscitate; R80.8 Other proteinuria; I25.119 Atherosclerotic heart disease of native coronary artery with unspecified angina pectoris; I45.10 Unspecified right bundle-branch block; Z85.820 Personal history of malignant melanoma of skin; Z88.0 Allergy status to penicillin; Z90.710 Acquired absence of both cervix and uterus; Z90.81 Acquired absence of spleen; Z95.5 Presence of coronary angioplasty implant and graft; Z90.89 Acquired absence of other organs; Z90.49 Acquired absence of other specified parts of digestive tract; Z79.4 Long term (current) use of insulin; Z88.2 Allergy status to sulfonamides; Z88.8 Allergy status to other drugs, medicaments and biological substances; Z88.1 Allergy status to other antibiotic agents; Z91.041 Radiographic dye allergy status; Z98.49 Cataract extraction status, unspecified eye
CPT/HCPCS: 36415; 71010; 78452; 80048; 80053; 80061; 84484; 85025; 93005; 93017; 96374; 96375; 96376; A9500; G0378; G0379; J2785; 99285-25

== ENCOUNTER 2017-06-03 01:26 | Inpatient (IN) | payer MEDICARE ==
[2017-06-03] MEDS ORDERED: ONDANSETRON PF 4 MG/2 ML VIAL. (01:40)
[2017-06-03] MEDS: IV NORMAL SALINE 500ML BAG 500 ML IV (01:47)
[2017-06-03] MEDS: ONDANSETRON PF 4 MG/2 ML VIAL. IV (01:47)
[2017-06-03] MEDS ORDERED: METOCLOPRAMIDE HCL 10 MG/2 ML VIAL. (02:06)
[2017-06-03 02:07] LABS: ADD MAN DIFF? NO
[2017-06-03 02:10] LABS: BASO # 0.1 x10^3/uL (0.0-0.2); BASO % 1 % (0-3); EOS # 0.1 x10^3/uL (0.0-0.7); EOS % 1 % (0-3); HEMATOCRIT 35.9 % (36.0-47.0); HEMOGLOBIN 11.6 g/dL (12.0-15.5); LYMPH # 3.5 x10^3/uL (1.0-4.8); LYMPH % 27 % (24-48); MEAN CORPUSCULAR HEMOGLOBIN 31 pg (25-35); MEAN CORPUSCULAR HGB CONC 32 g/dL (31-37); MEAN CORPUSCULAR VOLUME 96 fL (79-100); MONO # 0.8 x10^3/uL (0.0-1.1); MONO % 6 % (0-9); NEUT # 8.3 x10^3uL (1.8-7.7); NEUT % 65 % (31-73); PLATELET COUNT 275 x10^3/uL (140-400); RED BLOOD COUNT 3.73 x10^6/uL (3.50-5.40); RED CELL DISTRIBUTION WIDTH 14.9 % (11.5-14.5); WHITE BLOOD COUNT 12.8 x10^3/uL (4.0-11.0)
[2017-06-03] MEDS: METOCLOPRAMIDE HCL 10 MG/2 ML VIAL. IV ×2 (02:10→04:32)
[2017-06-03 02:20] LABS: ANION GAP 9 (6-14); BLOOD UREA NITROGEN 39 mg/dL (7-20); CALCIUM 8.4 mg/dL (8.5-10.1); CARBON DIOXIDE 25 mmol/L (21-32); CHLORIDE 106 mmol/L (98-107); CREATININE 1.5 mg/dL (0.6-1.0); GFR 32.8; GLUCOSE 192 mg/dL (70-99); POTASSIUM 3.9 mmol/L (3.5-5.1); SODIUM 140 mmol/L (136-145)
[2017-06-03 02:31] LABS: TROPONINI < 0.017 ng/mL (0.000-0.055)
[2017-06-03] MEDS: IV NORMAL SALINE 1000ML BAG 1,000 ML IV (04:50)
[2017-06-03] MEDS ORDERED: ONDANSETRON PF 4 MG/2 ML VIAL. IV ×2 (05:00→12:00)
[2017-06-03] MEDS ORDERED: MAGNESIUM HYDROXIDE 2,400 MG/30 ML ORAL.SUSP. PO (09:15)
[2017-06-03] MEDS ORDERED: ACETAMINOPHEN 325 MG TABLET. PO (09:15)
[2017-06-03] MEDS: INSULIN ASPART 300 UNITS/3 ML INSULN.PEN SQ ×2 (12:00→17:00)
[2017-06-03 13:19] LABS: POC GLUCOSE 81 mg/dL (70-99)
[2017-06-03] MEDS: IV 1/2 NORMAL SALINE 1,000 ML IV ×2 (16:20→22:35)
[2017-06-03] MEDS: PIOGLITAZONE 15 MG TABLET. PO (16:22)
[2017-06-03] MEDS: OMEGA-3 FATTY ACIDS/FISH OIL 1,000 MG CAPSULE. PO (16:22)
[2017-06-03] MEDS: VENLAFAXINE XR 37.5 MG CAP.ER.24H. PO (16:22)
[2017-06-03] MEDS: ISOSORBIDE MONONITRATE ER 30 MG TAB.ER.24H PO (16:22)
[2017-06-03] MEDS: CYANOCOBALAMIN (VITAMIN B-12) 1,000 MCG TABLET. PO (16:22)
[2017-06-03] MEDS: CHOLECALCIFEROL (VITAMIN D3) 1,000 UNIT TABLET PO (16:22)
[2017-06-03] MEDS: MULTIVITAMIN with MINERAL TABLET. PO (16:22)
[2017-06-03] MEDS: METOPROLOL SUCC 24HR ER 25 MG TAB.ER.24H. PO (16:23)
[2017-06-03] MEDS: MECLIZINE HCL 12.5 MG TABLET. PO ×2 (16:24→20:31)
[2017-06-03 17:09] LABS: POC GLUCOSE 96 mg/dL (70-99)
[2017-06-03 21:57] LABS: POC GLUCOSE 105 mg/dL (70-99)
[2017-06-04] MEDS: IV 1/2 NORMAL SALINE 1,000 ML IV (05:41)
[2017-06-04 05:45] LABS: ADD MAN DIFF? NO
[2017-06-04 06:19] LABS: BASO % 1 % (0-3); EOS # 0.2 x10^3/uL (0.0-0.7); EOS % 3 % (0-3); HEMATOCRIT 32.9 % (36.0-47.0); HEMOGLOBIN 10.8 g/dL (12.0-15.5); LYMPH % 46 % (24-48); MEAN CORPUSCULAR HEMOGLOBIN 31 pg (25-35); MEAN CORPUSCULAR HGB CONC 33 g/dL (31-37); MEAN CORPUSCULAR VOLUME 96 fL (79-100); MONO # 0.8 x10^3/uL (0.0-1.1); MONO % 12 % (0-9); NEUT # 2.6 x10^3uL (1.8-7.7); NEUT % 39 % (31-73); PLATELET COUNT 243 x10^3/uL (140-400); RED BLOOD COUNT 3.43 x10^6/uL (3.50-5.40); RED CELL DISTRIBUTION WIDTH 14.8 % (11.5-14.5); WHITE BLOOD COUNT 6.6 x10^3/uL (4.0-11.0)
[2017-06-04 06:33] LABS: ALBUMIN 2.9 g/dL (3.4-5.0); ALK PHOS 46 U/L (46-116); ALT (SGPT) 11 U/L (14-59); ANION GAP 10 (6-14); AST (SGOT) 12 U/L (15-37); BLOOD UREA NITROGEN 26 mg/dL (7-20); BUN/CREATININE RATIO 20 (6-20); CALCIUM 8.6 mg/dL (8.5-10.1); CARBON DIOXIDE 25 mmol/L (21-32); CHLORIDE 109 mmol/L (98-107); CREATININE 1.3 mg/dL (0.6-1.0); GFR 38.7; GLUCOSE 97 mg/dL (70-99); POTASSIUM 3.7 mmol/L (3.5-5.1); SODIUM 144 mmol/L (136-145); TOTAL BILIRUBIN 0.3 mg/dL (0.2-1.0); TOTAL PROTEIN 5.9 g/dL (6.4-8.2)
[2017-06-04 07:16] LABS: THYROID STIM HORMONE (TSH) 0.655 uIU/mL (0.358-3.74)
[2017-06-04] MEDS: INSULIN ASPART 300 UNITS/3 ML INSULN.PEN SQ ×3 (08:00→17:00)
[2017-06-04] MEDS: ISOSORBIDE MONONITRATE ER 30 MG TAB.ER.24H PO (09:00)
[2017-06-04 11:55] LABS: POC GLUCOSE 101 mg/dL (70-99)
[2017-06-04 11:56] LABS: POC GLUCOSE 94 mg/dL (70-99)
[2017-06-04] MEDS: MULTIVITAMIN with MINERAL TABLET. PO (13:07)
[2017-06-04] MEDS: OMEGA-3 FATTY ACIDS/FISH OIL 1,000 MG CAPSULE. PO (13:07)
[2017-06-04] MEDS: PIOGLITAZONE 15 MG TABLET. PO (13:08)
[2017-06-04] MEDS: CHOLECALCIFEROL (VITAMIN D3) 1,000 UNIT TABLET PO (13:08)
[2017-06-04] MEDS: CYANOCOBALAMIN (VITAMIN B-12) 1,000 MCG TABLET. PO (13:08)
[2017-06-04] MEDS: MECLIZINE HCL 12.5 MG TABLET. PO ×3 (13:08→20:08)
[2017-06-04] MEDS: PANTOPRAZOLE 40 MG TABLET.DR. PO (13:08)
[2017-06-04] MEDS: VENLAFAXINE XR 37.5 MG CAP.ER.24H. PO (13:08)
[2017-06-04] MEDS: CLOPIDOGREL BISULFATE 75 MG TABLET PO (13:08)
[2017-06-04] MEDS: METOPROLOL SUCC 24HR ER 25 MG TAB.ER.24H. PO (13:09)
[2017-06-04 15:59] LABS: POC GLUCOSE 108 mg/dL (70-99)
[2017-06-04 21:20] LABS: POC GLUCOSE 96 mg/dL (70-99)
[2017-06-05] MEDS: IV 1/2 NORMAL SALINE 1,000 ML IV (04:35)
[2017-06-05 05:10] LABS: ADD MAN DIFF? NO
[2017-06-05 05:19] LABS: BASO # 0.1 x10^3/uL (0.0-0.2); BASO % 1 % (0-3); EOS # 0.2 x10^3/uL (0.0-0.7); EOS % 3 % (0-3); HEMATOCRIT 34.8 % (36.0-47.0); HEMOGLOBIN 11.4 g/dL (12.0-15.5); LYMPH # 3.4 x10^3/uL (1.0-4.8); LYMPH % 44 % (24-48); MEAN CORPUSCULAR HEMOGLOBIN 32 pg (25-35); MEAN CORPUSCULAR HGB CONC 33 g/dL (31-37); MEAN CORPUSCULAR VOLUME 97 fL (79-100); MONO % 13 % (0-9); NEUT # 3.1 x10^3uL (1.8-7.7); NEUT % 40 % (31-73); PLATELET COUNT 260 x10^3/uL (140-400); RED BLOOD COUNT 3.61 x10^6/uL (3.50-5.40); RED CELL DISTRIBUTION WIDTH 14.8 % (11.5-14.5); WHITE BLOOD COUNT 7.8 x10^3/uL (4.0-11.0)
[2017-06-05 05:41] LABS: ANION GAP 10 (6-14); BLOOD UREA NITROGEN 27 mg/dL (7-20); CALCIUM 8.8 mg/dL (8.5-10.1); CARBON DIOXIDE 26 mmol/L (21-32); CHLORIDE 107 mmol/L (98-107); CREATININE 1.3 mg/dL (0.6-1.0); GFR 38.7; GLUCOSE 92 mg/dL (70-99); POTASSIUM 3.6 mmol/L (3.5-5.1); SODIUM 143 mmol/L (136-145)
[2017-06-05] MEDS: INSULIN ASPART 300 UNITS/3 ML INSULN.PEN SQ ×2 (08:00→12:00)
[2017-06-05 08:14] LABS: POC GLUCOSE 99 mg/dL (70-99)
[2017-06-05] MEDS: OMEGA-3 FATTY ACIDS/FISH OIL 1,000 MG CAPSULE. PO (09:37)
[2017-06-05] MEDS: PIOGLITAZONE 15 MG TABLET. PO (09:38)
[2017-06-05] MEDS: PANTOPRAZOLE 40 MG TABLET.DR. PO (09:38)
[2017-06-05] MEDS: CHOLECALCIFEROL (VITAMIN D3) 1,000 UNIT TABLET PO (09:38)
[2017-06-05] MEDS: CLOPIDOGREL BISULFATE 75 MG TABLET PO (09:38)
[2017-06-05] MEDS: MULTIVITAMIN with MINERAL TABLET. PO (09:38)
[2017-06-05] MEDS: VENLAFAXINE XR 37.5 MG CAP.ER.24H. PO (09:38)
[2017-06-05] MEDS: CYANOCOBALAMIN (VITAMIN B-12) 1,000 MCG TABLET. PO (09:38)
[2017-06-05] MEDS: MECLIZINE HCL 12.5 MG TABLET. PO (09:38)
[2017-06-05] MEDS: METOPROLOL SUCC 24HR ER 25 MG TAB.ER.24H. PO (09:40)
[2017-06-05] MEDS: ISOSORBIDE MONONITRATE ER 30 MG TAB.ER.24H PO (09:41)
[2017-06-05] MEDS ORDERED: MECLIZINE HCL 12.5 MG TABLET. PO (10:30)
[2017-06-05 11:47] LABS: POC GLUCOSE 129 mg/dL (70-99)
== END 2017-06-05 15:10 | disposition home or self-care (01) | DRG 683 ==
LOC: ER 01:26 → ED HOLD 04:45 → 6 SOUTH 14:20
DX: N17.9 Acute kidney failure, unspecified (principal); I69.354 Hemiplegia and hemiparesis following cerebral infarction affecting left non-dominant side; E11.21 Type 2 diabetes mellitus with diabetic nephropathy; H83.09 Labyrinthitis, unspecified ear; E86.0 Dehydration; E78.5 Hyperlipidemia, unspecified; E11.22 Type 2 diabetes mellitus with diabetic chronic kidney disease; I12.9 Hypertensive chronic kidney disease with stage 1 through stage 4 chronic kidney disease, or unspecified chronic kidney disease; I25.10 Atherosclerotic heart disease of native coronary artery without angina pectoris; N18.3 Chronic kidney disease, stage 3 (moderate); Z79.84 Long term (current) use of oral hypoglycemic drugs; Z79.899 Other long term (current) drug therapy; Z90.81 Acquired absence of spleen; Z85.820 Personal history of malignant melanoma of skin; Z98.61 Coronary angioplasty status; Z88.0 Allergy status to penicillin; Z88.2 Allergy status to sulfonamides; Z88.8 Allergy status to other drugs, medicaments and biological substances; Z90.49 Acquired absence of other specified parts of digestive tract; Z98.49 Cataract extraction status, unspecified eye; Z90.710 Acquired absence of both cervix and uterus
CPT/HCPCS: 36415; 70450; 71045; 74176; 80048; 80053; 82962; 84443; 84484; 85025; 93005; 96361; 96374; 96375; 96376; 97161-GP; 97166-GO; 99285; 99285-25; J1815; J2405; J2765; J7030; J7040; J8597

== ENCOUNTER → 2017-11-10 | Outpatient (CLI) | payer MEDICARE | END | disposition home or self-care (01) | LOC: ECHO 10:38 | DX: I37.1 Nonrheumatic pulmonary valve insufficiency (principal); I12.9 Hypertensive chronic kidney disease with stage 1 through stage 4 chronic kidney disease, or unspecified chronic kidney disease; E11.22 Type 2 diabetes mellitus with diabetic chronic kidney disease; N18.3 Chronic kidney disease, stage 3 (moderate); E78.5 Hyperlipidemia, unspecified | CPT/HCPCS: 93306 ==

== ENCOUNTER → 2018-06-20 | Outpatient (CLI) | payer MEDICARE ==
[2018-05-20 11:00] VITALS: BP 134/52
[~2018-06-20] MED LIST changes: +AMLO10TA6 PO; +AMLO5TAB7 PO; +CHOL10002 PO; +FERR325T72 PO; +HYDR-2145 PO; -HYDR25TA9 PO; +ISOS30TA4 PO; +MECL12.52 PO; +METO-239 PO; +PIOG15TA42 PO; +PRAV40TA2 PO; +Pantoprazole PO; +REGADENOSON 0.4 MG/5 ML DISP.SYRIN. IV ONE
--- NOTE | 2018-06-20 12:41 | RAD ---
MR#: [id number] Date of Study: 06/20/2018 Ordering Physician: REE ROMAN Referring Physician: GARRETT HUMPHREY Tech: RT Mala (R) (N) APPROVED REPORT Test Type: Pharmacological Stress Nurse/Tech: Lynnette TURNER Test Indications: CAD Cardiac History: Cardiac Stents 3-4 years ago, HTN, CVA, DM Medications: See EMR Medical History: DM, See EMR Resting ECG: SR with BBB Resting Heart Rate: 74 bpm Resting Blood Pressure: 170/62mmHg Pretest Chest Pain: No chest pain Nurse/Tech Notes Lungs CTA, Heart tones regular Consent: The procedure was explained to the patient in lay terms. Informed consent was witnessed. Mendoza eout was entered into [employer]. History and Stress Test performed by AGUSTINA Uriarte Pharm. Details Pharmacologic stress testing was performed using 0.4mg per 5ml of regadenoson given intravenously ove r 7-10 seconds. Stress Symptoms Pt states having chest heaviness across upper chest at 00:55 stage R. The heaviness resolved by 01:3 0 stage R. POST EXERCISE Reason for Termination: Infusion complete Max HR: 87 bpm Max Blood Pressure: 145/48mmHg Chest Pain: No. Pt denies pain; See stress symptoms above. Arrhythmia: No. ST Change: No. INTERPRETATION Stress EKG Conclusion: Baseline EKG showed sinus rhythm with RBBB. Non diagnostic changes at peak st ress. No arrhythmias. Imaging Protocol IMAGE PROTOCOL: Rest Tc-99m/stress Tc-99m 1 day Rest: Stress: Viability: Radiopharm.Tc99m PssmbjbcuQj10e Sestamibi Dose11.1mCi 33.2mCi Duration 13min. 13min. Img Date 06/20/2018 06/20/2018 Inj-Img [id number]. 60min. Rest Admin Site:IV - Right AntecubitalAdministrator:AGUSTINA Uriarte Stress Admin Site: IV - Right AntecubitalAdministrator: AGUSTINA Uriarte STRESS DATA End Diast. Vol.74.0mlLVEDV index BSA45.0ml End Syst. Vol.19.0mlLVESV index BSA12.0ml Myocardial Zimn080.0gEject. Xcmuusme51.0% Stress Scores Regional WT0.00Summed WT0.00 Regional WM0.00Summed WM1.00 LV Perfusion Scintigraphic images showed small reversible defect involving the anterior wall consistent with ische trish. Wall Motion Normal left ventricle systolic function with ejection fraction calculated at 74%. LV Perf. Quant 17 Seg. SSS4.00 17 Seg. SRS1.00 17 Seg. SDS3.00 Stress Defect Extent (% LAD)0.00Rest Defect Extent (% LAD)0.00Rev. Defect Extent (% LAD)0.00 Stress Defect Extent (% LCX) 41.30Rest Defect Extent (% LCX)11.30Rev. Defect Extent (% LCX)17.50 Stress Defect Extent (% RCA)0.00Rest Defect Extent (% RCA)0.00Rev. Defect Extent (% RCA)0.00 Stress Defect Extent (% ANDRES)8.30Rest Defect Extent (% ANDRES)2.00Rev. Defect Extent (% ANDRES)4.10 Conclusion 1. Regadenoson cardioisotope stress test showed small amount of anterior wall ischemia. 2. Normal left ventricular systolic function with ejection fraction calculated at 74%. 3. Low to intermediate risk for cardiac events. Signed by : Ree Roman, Electronically Approved : 06/20/2018 12:39:32
== END | disposition home or self-care (01) ==
LOC: NM 08:46
PROVIDERS: ATTEND Internal Medicine Cardiovascular Disease
DX: I25.10 Atherosclerotic heart disease of native coronary artery without angina pectoris (principal); I25.89 Other forms of chronic ischemic heart disease; I10 Essential (primary) hypertension; E11.9 Type 2 diabetes mellitus without complications; Z86.73 Personal history of transient ischemic attack (TIA), and cerebral infarction without residual deficits
CPT/HCPCS: 78452; 93017; 96374; A9500; J2785

== ENCOUNTER 2018-06-23 08:55 | Outpatient (CLI) | payer MEDICARE ==
[~2018-06-23] VITALS: Ht 154.9 cm; Wt 64.0 kg
[2018-06-23] VITALS (9 sets, daily range): BP systolic 116–166; BP diastolic 47–78
[~2018-06-23 08:55] MED LIST changes: -REGADENOSON 0.4 MG/5 ML DISP.SYRIN. IV ONE
[2018-06-23] MEDS ORDERED: fentaNYL PF VIAL 100 MCG/2 ML VIAL ONE (09:16)
[2018-06-23] MEDS ORDERED: MIDAZOLAM HCL/PF 2 MG/2 ML VIAL. ONE (09:16)
[2018-06-23] MEDS ORDERED: NITROGLYCERIN 200 MCG/2 ML SYRINGE FOR CATH/VASC LAB. ONE (09:16)
[2018-06-23] MEDS ORDERED: VERAPAMIL 5 MG/2 ML VIAL. ONE (09:16)
[2018-06-23] MEDS ORDERED: HEPARIN for IV BOLUS 10,000 UNIT/10 ML VIAL. ONE (09:16)
[2018-06-23] MEDS ORDERED: OMEG1CAP6 PO (09:26)
[2018-06-23] MEDS ORDERED: CYAN10005 PO (09:26)
[2018-06-23] MEDS ORDERED: VIT1CAPS12 PO (09:26)
[2018-06-23] MEDS ORDERED: LIDOCAINE 1% PF 2 ML VIAL. INJ ONE (09:30)
[2018-06-23] MEDS ORDERED: IODIXANOL 320 MG/ML 100 ML VIAL. IART ONE (09:30)
[2018-06-23] MEDS ORDERED: MIDAZOLAM HCL/PF 2 MG/2 ML VIAL. IV ONE (09:30)
[2018-06-23] MEDS ORDERED: diphenhydrAMINE 50 MG/ML VIAL IVP ONE (09:30)
[2018-06-23] MEDS ORDERED: fentaNYL PF VIAL 100 MCG/2 ML VIAL IV ONE (09:30)
[2018-06-23] MEDS ORDERED: methylPREDNISolone SOD SUCC PF 125 MG/2 ML VIAL. IV ONE (09:30)
[2018-06-23] MEDS ORDERED: FAMOTIDINE 20 MG/2 ML VIAL IVP ONE (09:30)
[2018-06-23 09:32] LABS: HEMATOCRIT 32.3 % (36.0-47.0); HEMOGLOBIN 10.3 g/dL (12.0-15.5); RED BLOOD COUNT 3.68 x10^6/uL (3.50-5.40); RED CELL DISTRIBUTION WIDTH 20.3 % (11.5-14.5); WHITE BLOOD COUNT 8.7 x10^3/uL (4.0-11.0)
[2018-06-23 09:39] LABS: PROTHROMBIN TIME PATIENT 14.6 SEC (11.7-14.0)
[2018-06-23 09:53] LABS: CALCIUM 9.3 mg/dL (8.5-10.1); CREATININE 1.6 mg/dL (0.6-1.0); GFR 30.4; POTASSIUM 3.8 mmol/L (3.5-5.1)
[2018-06-23] MEDS ORDERED: diphenhydrAMINE 50 MG/ML VIAL ONE (09:55)
[2018-06-23] MEDS ORDERED: FAMOTIDINE 20 MG/2 ML VIAL ONE (09:55)
[2018-06-23] MEDS ORDERED: methylPREDNISolone SOD SUCC PF 125 MG/2 ML VIAL. ONE (09:55)
[2018-06-23] MEDS ORDERED: VERAPAMIL 5 MG/2 ML VIAL. IART ONE (10:30)
[2018-06-23] MEDS ORDERED: HEPARIN for IV BOLUS 10,000 UNIT/10 ML VIAL. IART ONE (10:30)
[2018-06-23] MEDS ORDERED: NITROGLYCERIN 200 MCG/2 ML SYRINGE FOR CATH/VASC LAB. IART ONE (10:30)
[2018-06-23] MEDS ORDERED: LIDOCAINE 1% Multi-Dose 20 ML VIAL. ONE (10:39)
[2018-06-23] MEDS ORDERED: LIDOCAINE 1% Multi-Dose 20 ML VIAL. INJ ONE (10:45)
--- NOTE | 2018-06-23 11:35 | CARD ---
MR#: [id number] Date of Study: 06/23/2018 Ordering Physician: REE IRWIN, Referring Physician: Marcel HUMPHREY: Ailin Montalvo RTR APPROVED REPORT Technologist: Ailin Montalvo RTR Nurse: Marielle Ley RN Procedure(s) performed: Left heart catheterization, selective coronary angiography and left ventricul ography Moderate Sedation time: 42 min INDICATION The indication(s) include : Dyspnea on exertion and positive stress test. PROCEDURE NARRATIVE After explaining the risks, benefits and alternative options, informed consent was obtained from mirza ent. Patient was brought to the cardiac [employer] and her right wrist and groin were prepped and drape d in the usual fashion. Attempts to obtain right radial arterial access for unsuccessful due to small caliber nature of the vessel probably related to prior radial arterial access. 20 mL of 2% lidocaine was then infiltrated into the skin and subcutis tissues of the right groin for local anesthetic. Art erial access was obtained in the right common femoral artery and [place] sheath was inserted. 6 Fren ch JL4 and [place] JR4 catheters placed to perform selective angiography of the left and right coron yisel arteries. 6 [place] pigtail catheter was used to perform left ventriculography. Patient tolerated the procedure well. Hemostasis was achieved using mynx closure device. There were no immediate compli cations. FINDINGS 1. 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 No pullback gradient across the aortic valve. 2. Left ventriculography: Normal left ventricle systolic function with ejection fraction estimated at 50-55%. No significant mitral regurgitation seen. 3. Coronary angiography: a. The left main coronary artery arose from the left sinus of Valsalva, was short, gave rise to the left anterior descending and left circumflex arteries and did not show any significant stenosis. b. The left anterior descending artery showed 20% stenosis in the ostial segment. No critical lesion s were noted. c. The left circumflex artery was a large and dominant vessel that showed 30% stenosis in the midseg ment. d. The right coronary artery was a small and nondominant vessel that showed widely patent stent in t he proximal segment. Conclusion 1. No significant coronary artery disease with widely patent previously placed stent in the nondomin ant right coronary artery. 2. Normal left ventricle systolic function with ejection fraction estimated at 50-55%. Recommendations Medical Therapy Signed by : Ree Irwin, Electronically Approved : 06/23/2018 11:33:08
[2018-06-23] MEDS ORDERED: LIDOCAINE 1% PF 2 ML VIAL. ONE (11:51)
[2018-06-23] MEDS ORDERED: IODIXANOL 320 MG/ML 100 ML VIAL. ONE (11:51)
[2018-06-23] MEDS ORDERED: IV 1/2 NORMAL SALINE 1,000 ML IV SCH (11:53)
--- NOTE | 2018-06-23 11:53 | PDOC ---
MODERATE SEDATION ASSESSMENT RISKS/ALTERNATIVES Risks/Alternatives Risks and alternatives of this type of sedation and procedure discussed with: RISK/ALTERNATIVES: Patient H & P ON CHART H & P H & P on chart and reviewed for co-morbid conditions and appropriate labs. H&P ON CHART: Yes STATUS PREG STATUS ASSESSED: N/A MEDS/ALLERGIES REVIEWED Meds/Allergies Reviewed Medications and Allergies including time and route of recently administered narcotics and sedatives. MEDS/ALLERGIES REVIEWED: Yes ASA RATING ASA RATING: II AIRWAY ASSESSMENT Airway Assessment Airway patency, oral function limitations, presence of caps, crowns, dentures, partials, and ability to extend neck assessed. AIRWAY ASSESSMENT: Yes MALLAMPATI SCORE MALLAMPATI SCORE: II PRE-SEDATION ASSESSMENT PRE-SEDATION ASSESSMENT: Yes REE ROMAN MD Jun 23, 2018 11:53
[2018-06-23] MEDS ORDERED: NITROGLYCERIN SUBLINGUAL 0.4 MG BOTTLE OF 25. SL PRN (12:00)
[2018-06-23] MEDS ORDERED: 0.9 % SODIUM CHLORIDE 10 ML DISP.SYRIN. IV PRN (12:00)
--- NOTE | 2018-06-23 14:23 | NUR ---
pt A&O x3 . denies pain or nausea. VSS. rt groin site is clean and dry. no bleeding or swelling at site. tolerating po well. ambulating w/ her cane per her normal. d/c instructions given and questions answered. out to vehicle per w/c - family to drive her home.
== END 2018-06-23 14:20 | disposition home or self-care (01) ==
LOC: CCL 08:55
PROVIDERS: ATTEND Internal Medicine Cardiovascular Disease
DX: I25.10 Atherosclerotic heart disease of native coronary artery without angina pectoris (principal); R94.39 Abnormal result of other cardiovascular function study; Z88.2 Allergy status to sulfonamides; Z88.0 Allergy status to penicillin; Z88.6 Allergy status to analgesic agent; Z88.1 Allergy status to other antibiotic agents; Z91.041 Radiographic dye allergy status; Z79.899 Other long term (current) drug therapy
CPT/HCPCS: 36415; 80048; 85027; 85610; 93458; C1713; C1769; C1892; G0269; J1200; J1644; J2250; J2930; J3010; J3490; 99152; 99153